=== PATIENT | female | born 1950 | race Caucasian/White ===

== ENCOUNTER 2019-07-19 09:10 | Day surgery (SDC) | payer MEDICARE ==
[~2019-07-19 09:10] MED LIST: Buffered Lidocaine 1% SYRIN* 1 ML/SYRINGE INTRADERM ONE; Lactated Ringers 1000 ML Bag* 1,000 ML IV SCH
[2019-07-19] MEDS ORDERED: ceFAZolin 2 GM in NS PREMIX(*) 2 GM/100 ML BAG IVPB ONE (09:42)
[2019-07-19] MEDS ORDERED: Buffered Lidocaine 1% SYRIN* 1 ML/SYRINGE INTRADERM ONE (09:42)
[2019-07-19] MEDS ORDERED: fentaNYL* 50 MCG/ML 2 ML VIAL (100 MCG VIAL) ONE (10:24)
[2019-07-19] MEDS ORDERED: Midazolam* 1 MG/ML 2 ML VIAL (2 MG) ONE (10:24)
[2019-07-19] MEDS ORDERED: Bupivacaine 0.25% SDV PF* 10 ML VIAL INJ ONE (10:55)
[2019-07-19] MEDS ORDERED: Lidocaine 1% w EPI 1:100,000* MDV 20 ML VIAL ONE (10:55)
[2019-07-19] MEDS ORDERED: Naloxone* 0.4 MG/ML 1 ML VIAL IV PRN (12:03)
[2019-07-19 13:20] VITALS: BP 109/59
== END 2019-07-19 14:08 | disposition home or self-care (01) ==
LOC: OR 09:10
PROVIDERS: ATTEND Plastic Surgery
DX: C44.722 Squamous cell carcinoma of skin of right lower limb, including hip (principal); J45.909 Unspecified asthma, uncomplicated; Z85.828 Personal history of other malignant neoplasm of skin
CPT/HCPCS: 88305; 88329; J0690; J2250; J3010; J3490

== ENCOUNTER 2019-07-26 12:48 | Inpatient (IN) | payer MEDICARE ==
[2019-07-26] MEDS ORDERED: traMADol TAB* 50 MG PO ONE (13:06)
--- NOTE | 2019-07-26 13:09 | ED ---
Lower Extremity - HPI Summary HPI Summary: The patient is a 68 y/o female arriving by ambulance to [facility] with a chief complaint of a mechanical fall where she landed on the right hip at 1130 this morning. She reports that she was outside walking on uneven ground while it was snowing, and she slipped and fell on the right side. She now has pain in the right hip and thigh, causing a decreased ROM in the hip. The pressure pain is currently rated 1/10 in severity while at rest, but it is aggravated by movement. She denies any numbness or tingling in the hip, fever, chills, erythema of eyes, sore throat, chest pain, shortness of breath, cough, abdominal pain, nausea, vomiting, dysuria, hematuria, edema, rash, or dizziness. She did not have any head injury or LOC from the fall, and there is no pain in the neck. She is not currently on anticoagulants. She notes recent skin biopsy on right thigh. PMHx: asthma. Nonsmoker, no EtOH, no substance use. Medications reviewed. Allergies noted. - History of Current Complaint Stated Complaint: FALL-RIGHT HIP PAIN PER EMS Time Seen by Provider: 07/26/19 12:55 Hx Obtained From: Patient Mechanism Of Injury: Fall From A Standing Position Onset of Pain: Immediate Onset/Duration: Still Present Severity Initially: Moderate Severity Currently: Mild Pain Intensity: 1 Pain Scale Used: 0-10 Numeric Timing: Lasting Hours Location: Is Discrete @ - right hip and thigh Character Of Pain: Dull Associated Signs And Symptoms: Positive: Other - decreased ROM secondary to pain ; Negative: numbness or tingling in the hip, chills, erythema of eyes, sore throat, chest pain, shortness of breath, cough, nausea, vomiting, dysuria, hematuria, edema, rash, head injury, LOC. Negative: Fever, Dizziness, Abdominal Pain - Allergies/Home Medications Allergies/Adverse Reactions: Allergies Allergy/AdvReac Type Severity Reaction Status Date / Time No Known Allergies Allergy Verified 07/12/19 14:37 PMH/Surg Hx/FS Hx/Imm Hx Endocrine/Hematology History: Denies: Hx Diabetes Cardiovascular History: Denies: Hx Hypertension Respiratory History: Reports: Hx Asthma - CHILDHOOD GI History: Reports: Other GI Disorders - SL.CONSTIPATION Musculoskeletal History: Reports: Hx Arthritis - HANDS AND KNEES Denies: Hx Osteoporosis Sensory History: Reports: Hx Contacts or Glasses - CONTACTS WILL WEAR GLASSES DOS Denies: Hx Hearing Aid Opthamlomology History: Reports: Hx Contacts or Glasses - CONTACTS WILL WEAR GLASSES DOS Neurological History: Reports: Other Neuro Impairments/Disorders - TREMOR RIGHT HAND, TENSION TREMOR - Cancer History Hx Chemotherapy: No Hx Radiation Therapy: No - Surgical History Surgical History: Yes Surgery Procedure, Year, and Place: JUL 2018 . [address]ZUPRUK Lara Anesthesia Reactions: No - Family History Known Family History: Negative: Diabetes - Social History Alcohol Use: None Hx Substance Use: No Substance Use Type: Reports: None Hx Tobacco Use: No Smoking Status (MU): Never Smoked Tobacco Have You Smoked in the Last Year: No Review of Systems Negative: Fever, Chills Negative: Erythema Negative: Sore Throat Negative: Chest Pain Negative: Shortness Of Breath, Cough Negative: Abdominal Pain, Vomiting, Nausea Negative: dysuria, hematuria Positive: Arthralgia - right hip, Myalgia - right thigh and hip, Decreased ROM - right hip secondary to pain. Negative: Edema Negative: Rash Neurological: Other - Negative: dizziness, head injury, LOC Negative: Paresthesia, Numbness All Other Systems Reviewed And Are Negative: Yes Physical Exam - Summary Physical Exam Summary: Constitutional: Well-developed, Well-nourished, Alert. (-) Distressed Skin: Warm, Dry HENT: Normocephalic; Atraumatic Eyes: Conjunctiva normal Neck: Musculoskeletal ROM normal neck. (-) JVD, (-) Stridor, (-) Tracheal deviation Cardio: Rhythm regular, rate normal, Heart sounds normal; Intact distal pulses; The pedal pulses are 2+ and symmetric. Radial pulses are 2+ and symmetric. (-) Murmur Pulmonary/Chest wall: Effort normal. (-) Respiratory distress, (-) Wheezes, (-) Rales Abd: Soft, (-) tenderness, (-) Distension, (-) Guarding, (-) Rebound Musculoskeletal: Decreased ROM of the right hip secondary to pain, Unable to lift the leg herself secondary to pain, Will not left me lift the leg secondary to pain, Mild tenderness on the right lateral hip, Femur tenderness overlying the skin biopsy incision, (-) Edema Lymph: (-) Cervical adenopathy Neuro: Alert, Oriented x3 Psych: Mood and affect Normal Triage Information Reviewed: Yes Vital Signs Reviewed: Yes Procedures - Sedation Patient Received Moderate/Deep Sedation with Procedure: No Diagnostics - Laboratory Result Diagrams: 07/26/19 14:27 07/26/19 14:27 Lab Statement: Any lab studies that have been ordered have been reviewed, and results considered in the medical decision making process. - Radiology Hip/Pelvis XR Radiology Interpretation Completed By: Radiologist Summary of Radiographic Findings: Impression: There is a comminuted subtrochanteric right hip fracture with lateral apex angulation and foreshortening. There is mild right hip osteoarthropathy. ED physician has reviewed this report. Femur XR Radiology Interpretation Completed By: Radiologist Summary of Radiographic Findings: Impression: Persistent comminuted and angulated subtrochanteric fracture of the right femur. ED physician has reviewed this report. CXR Radiology Interpretation Completed By: Radiologist Summary of Radiographic Findings: Impression: No active cardiopulmonary disease. ED physician has reviewed this report. - EKG 1420 Cardiac Rate: Tachycardia - 117 bpm EKG Rhythm: Sinus Tachycardia Summary of EKG Findings: An EKG at 1420 reveals sinus tachycardia at 117 bpm. Motion artifact. No STEMI. ED physician has reviewed and interpreted this EKG. 1629 Cardiac Rate: NL - 72 bpm EKG Rhythm: Sinus Rhythm Summary of EKG Findings: An EKG at 1629 reveals normal sinus rhythm at 72 bpm. No STEMI. ED physician has reviewed and interpreted this EKG. Re-Evaluation - Re-Evaluation First Eval Re-Evaluation Time: 15:00 Comment: Patient aware of need for admission, agrees with plan. Lower Extremity Course/Dx - Course Course Of Treatment: Patient is a 68 y/o female presenting by ambulance after a mechanical fall at 1130 today while walking outside in the snow, causing her to fall and have immediate onset pain in the right hip with decreased ROM but without any numbness or tingling in the leg. No head injury, LOC, or neck pain with fall. No anticoagulants. Physical exam reveals decreased ROM of the right hip secondary to pain, unable to lift the leg herself or by me secondary to pain , mild tenderness on the right lateral hip, and femur tenderness overlying the skin biopsy incision. Patient administered Tramadol for pain. Blood work reveals WBCs of 13.5, glucose of 144, and total protein of 6. UA is negative for infection. EKG reveals sinus tachycardia at 117 with motion artifact. CXR is negative. Hip/Pelvis and Femur XRs reveal comminuted subtrochanteric right hip fracture with lateral apex angulation and foreshortening. Repeat EKG shows normal sinus rhythm at [address] Barraza from orthopedics is aware of the patient and will consult for her. Dr. Francis from hospitalist services has accepted the patient for admission. Patient understands and agrees with this plan. - Diagnoses Provider Diagnoses: Subtrochanteric fracture of right femur - Physician Notifications Discussed Care Of Patient With: Jose Barraza - orthopedics Time Discussed With Above Provider: 15:10 Instructed by Provider To: Other - I discussed the patient's case with Dr. Barraza, who will consult for the patient. I spoke with Dr. Francis from the hospitalist services, who accepts the patient for admission at 1525. Discharge ED - Sign-Out/Discharge Documenting (check all that apply): Patient Departure - Patient accepted for admission by Dr. Francis. - Discharge Plan Condition: Stable Disposition: ADMITTED TO [facility] - Attestation Statements Document Initiated by Scribe: Yes Documenting Scribe: Delma Fung Provider For Whom Johnny is Documenting (Include Credential): Dr. Esteban Jacinto MD Scribe Attestation: Delma Chacko scribed for Dr. Esteban Jacinto MD on 07/26/19 at 1752. Status of Scribe Document: Ready
[2019-07-26 14:36] LABS: Hematocrit 36 % (35-47); Hemoglobin 12.4 g/dL (12.0-16.0); Mean Corpuscular HGB Conc 35 g/dL (31-36); Mean Corpuscular Hemoglobin 28 pg (27-31); Mean Corpuscular Volume 82 fL (80-97); Mean Platelet Volume 7.6 fL (7.4-10.4); Platelet Count 241 10^3/uL (150-450); Red Blood Count 4.38 10^6 /uL (3.70-4.87); Red Cell Distribution Width 14 % (10-15); White Blood Count 13.5 10^3/uL (3.5-10.8)
[2019-07-26 15:00] LABS: Albumin 3.9 g/dL (3.2-5.2); Albumin/Globulin Ratio 1.9 (1-3); BUN/Creatinine Ratio 22.7 (8-20); Calcium 8.9 mg/dL (8.6-10.3); EGFR African American 92.4 (>60); EGFR Non-African American 76.4 (>60); Globulin 2.1 g/dL (2-4); Potassium 3.7 mmol/L (3.5-5.0); Total Bilirubin 0.4 mg/dL (0.2-1.0)
[2019-07-26] MEDS ORDERED: Senna TAB 8.6 mg* TAB PO PRN (16:48)
[2019-07-26] MEDS ORDERED: Polyethylene Glycol 3350* 17 GM PACKET PO PRN (16:48)
[2019-07-26 16:50] LABS: Urine Appearance Clear; Urine Bilirubin Negative (Negative); Urine Blood Negative (Negative); Urine Color Yellow; Urine Glucose Negative (Negative); Urine Ketones Trace (Negative); Urine Nitrite Negative (Negative); Urine Protein Negative (Negative); Urine Specific Gravity 1.018 (1.010-1.030); Urine Urobilinogen Negative (Negative)
[2019-07-26 16:53] LABS: INR 1.03 (0.82-1.09)
--- NOTE | 2019-07-26 18:10 | HP ---
CC: Dr. Suyapa Nevarez * HISTORY AND PHYSICAL: DATE OF ADMISSION: 07/26/19 PRIMARY CARE PROVIDER: Dr. Suyapa Nevarez ATTENDING PHYSICIAN: Dr. Brooke Francis * (dictated by HUGH Scott). CHIEF COMPLAINT: 1. Mechanical fall. 2. Right hip pain. HISTORY OF PRESENT ILLNESS: Ms. Ontiveros is a 68-year-old female with no significant past medical history, who presented to the ER today with complaints of right hip pain status post mechanical fall. The patient states she was outside and she slipped on snow and fell landing on the right hip. She instantly felt pain and she states that she knew that the hip was broken at that time as she felt it "give way" when she landed. She denies head and neck injury or loss of consciousness. She was unable to use the hip. Upon arrival to the ER, a full workup was completed and a right femoral comminuted subtrochanteric fracture was seen on right femur and right hip/pelvis x-rays. The hospitalist team was asked to evaluate the patient for admission. PAST MEDICAL HISTORY: 1. Childhood asthma which the patient states she grew out of. 2. Squamous cell carcinoma, basal cell carcinoma. PAST SURGICAL HISTORY: L4-L5, surgical . HOME MEDICATIONS: 1. Ascorbic acid/ascorbate sodium 250 mg p.o. daily. 2. Arabic herbal tea 1 bag p.o. daily p.r.n. congestion. 3. Cholecalciferol 2000 units p.o. daily. ALLERGIES: No known drug allergies. FAMILY HISTORY: Father had an OK at the age of 50 which he survived. Brother had skin cancer. Mother had cancer of the lung/brain. No family history of diabetes mellitus or CVA. SOCIAL HISTORY: The patient denies current or former use of tobacco. She does not use alcohol or recreational drugs. 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 She is not . She has no children. She lives home alone. In the event that she is unable to make her own medical decision, she has appointed her brother Paul Linton or her oycgao-bi-vcy Nicole Michaels to be her surrogate decision makers. REVIEW OF SYSTEMS: A 14-point review of systems has been performed and all the pertinent positives and negatives are in the HPI, all other systems are negative. PHYSICAL EXAMINATION GENERAL: Ms. Ontiveros is a well-developed, well-nourished, healthy, older white woman who appears somewhat younger than her stated age. She appears to be in no acute distress. She is pleasant and cooperative, although somewhat anxious about her current state. HEENT: PERRL. EOMI. Visual olmstead grossly intact. Sclerae nonicteric without injection. Hearing is grossly intact. Oral mucous membranes are moist. There are no lesions. The pharynx is clear. The tongue is at midline and the palate elevates symmetrically. PULMONARY: Symmetrical chest expansion without use of accessory muscles. Clear to auscultation bilaterally anteriorly without rhonchi, wheeze, or rales. CARDIOVASCULAR: Regular rate and rhythm with S1, S2 present without murmurs, rubs, clicks, or gallops. There is no JVD or peripheral edema. ABDOMEN: Flat bowel sounds in all quadrants. Soft, nontender to palpation. MUSCULOSKELETAL: Bilateral upper extremities, left lower extremity with full range of motion without pain or deformities. The right lower extremity is externally rotated. Pulses are intact. Capillary refill less than 2. Sensation intact. The patient is able to wiggle distal digits. NEURO: The patient is awake. She is alert and oriented x3 with cranial nerves II through XII grossly intact. DIAGNOSTIC STUDIES/LAB DATA: 1. CBC: WBC 13.5, HGB 12.4, hematocrit 36. 2. CMP: Sodium 138, potassium 3.7, chloride 103, carbon dioxide 24, BUN 17, creatinine 0.75, glucose 144. 3. Chest x-ray, impression: No active cardiopulmonary disease. 4. Right hip and pelvis, impression: There is a comminuted subtrochanteric right hip fracture with lateral apex angulation and foreshortening. There is mild right hip osteoarthropathy. 5. Right femur, impression: Persistent comminuted and angulated subtrochanteric fracture of the right femur. 6. EKG: Rate 72, normal sinus rhythm, ELEONORA [address] depression or elevation. ASSESSMENT AND PLAN: Ms. Ontiveros is a 68-year-old female with no significant past medical history, who presented to the ER today status post mechanical fall and was found to have a right comminuted subtrochanteric fracture of the right femur. She will be admitted for: 1. Right femur fracture. The patient sustained mechanical fall landing on right hip and sustaining a comminuted subtrochanteric right femur fracture. Currently, the patient's pain is moderately well controlled. She will be continued on pain management as well as bowel regimen. Ortho has been consulted and has seen the patient and plans for gamma nail surgery. She will be n.p.o. in preparation for possible surgery tonight. She is nonweightbearing right lower extremity, bed rest until surgery has been performed. According to the patient's revised cardiac risk index, she scores 0 points and there is class I risk with 3.9% 30-day risk of , OK, or cardiac arrest. She denies any history of chest pain or shortness of breath. 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 She has no troubles with exercise capacity and is able to easily walk up flights of stairs. Electrocardiogram from today shows a normal sinus rhythm at the rate of [address] depression or elevation. Chest x-ray is negative for active cardiopulmonary disease. The patient is medically optimized for surgical intervention. 2. DVT prophylaxis: According to the DVT risk assessment, the patient scores 2 placing her at moderate risk. SCDs will be ordered. We will not start chemoprophylaxis at this time due to plans for surgical intervention. 3. Code status: Full code. TIME SPENT: Approximately 50 minutes was spent on this admission, greater than half that time was spent [id number] with the patient obtaining history, performing physical, and reviewing the plan of care. The case has been discussed with my attending Dr. Francis, who is in agreement with the plan of care. HUGH MALIK [id number]/CPS #: [id number] VIOLETTA
--- NOTE | 2019-07-26 18:35 | CONS ---
CONSULTATION REPORT: DATE OF CONSULT: 07/26/19 CHIEF COMPLAINT: Right femur fracture. HISTORY: The patient is a 68-year-old female with no past medical history, presents to [facility] on 07/26/19 after slipping on wet uneven ground at 11:30 this morning, landing directly on her right hip and suffering a subtroc fracture. She currently has no pain at rest. Pain is aggravated by movement. Pain is severe, sharp, and nonradiating. Denies any numbness, tingling of right lower extremity. She denies any other injury. She did not hit her head. She did not lose consciousness when she fell. She has no history of heart attack, stroke, blood clot, HIV, hepatitis or blood transfusion. PAST MEDICAL HISTORY: None. MEDICATIONS: No home medications PAST SURGICAL HISTORY: History of L4-5 surgery. No adverse reactions from anesthesia. ALLERGIES: She has no known drug allergies. 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 She does not smoke, drink alcohol or use any drugs. REVIEW OF SYSTEMS: General: No fever or chills. HEENT: Did not hit her head , did not lose consciousness. No change in vision. Cardiac: No chest pain. No history of heart attack. Respiratory: No shortness of breath. Abdomen: No abdominal pain, nausea, vomiting, diarrhea. : No dysuria. Musculoskeletal: Positive for right hip pain with movement, though she is quite comfortable at this time. She has no other complaints of musculoskeletal pain. Neuro: Denies any decreased sensation or tingling of extremities. Hematology : No history of blood clot. PHYSICAL EXAM: Blood pressure 112/63, oxygen saturation 100% on room air, respiratory rate 16, pulse rate 72, temperature is 97.6. General: The patient is well appearing, in no acute distress, lying comfortably in the emergency room. HEENT: Normocephalic, atraumatic. Extraocular movements are intact. Cardiac: S1, S2, regular rate and rhythm without any murmur. Respiratory: Clear to auscultation bilaterally. Abdomen: Bowel sounds normoactive, soft, nontender. No guarding. No rigidity. Musculoskeletal: Bilateral upper extremities; skin envelope intact, nontender to palpation. Able to flex and extend all joints without any pain. Left lower extremity; skin envelope intact. Able to flex and extend all joints without pain. No tenderness to palpation. Negative log roll. Right lower extremity; skin envelope is intact. Sensation intact to light touch distally. The patient is tender to palpation over the greater trochanter. There is no obvious rotation or shortening. She has no tenderness to palpation of the distal femur, knee, lower leg, foot, or digits. Vascular: DP 2+, capillary refill less than 2 seconds distally. ASSESSMENT: Right subtrochanteric fracture. PLAN: The patient will be nonweightbearing. She will be on bedrest. She has had preop labs including CBC and BMP so far and INR and type and screen have been ordered. She needs a repeat EKG and medical optimization. She will require a long gamma nail for fixation. This will happen at soonest available date. Dr. Barraza has been made aware, this should happen either tonight or tomorrow. HUGH ROWELL [id number]/[facility] #: [id number] [facility] HEALTHNico
[2019-07-26] MEDS ORDERED: fentaNYL* 50 MCG/ML 2 ML VIAL (100 MCG VIAL) ONE (19:40)
[2019-07-26] MEDS ORDERED: KETAMINE HCL* 50 MG/ML 10 ML VIAL ONE (19:40)
[2019-07-26] MEDS ORDERED: Midazolam* 1 MG/ML 2 ML VIAL (2 MG) ONE (19:40)
[2019-07-26] MEDS ORDERED: ceFAZolin 2 GM PREMIX in ORs 2 GM/50 ML BAG ONE (19:44)
--- NOTE | 2019-07-26 19:47 | CONSULT ---
Consult Consult: Agree with consult note by Ana Rao. Discussed with patient (and her [id number] by phone) fracture along with surgical and medical risks and potential complications of surgery. To the OR for ORIF subtrochanteric hip fracture with long intramedullary nail. Optimized by medicine.
[2019-07-26] MEDS ORDERED: Naloxone* 0.4 MG/ML 1 ML VIAL IV PRN (19:51)
[2019-07-26] MEDS ORDERED: oxyCODONE/Acetamin 5/325 MG* TAB PO PRN (19:51)
[2019-07-26] MEDS ORDERED: Ketorolac INJ* 30 MG/ML 1 ML VIAL IV PRN (19:51)
[2019-07-26] MEDS ORDERED: HYDROcodone/ACETAMIN 5-325 MG* 1 TAB PO PRN (19:51)
[2019-07-26] MEDS ORDERED: DiMENhydriNATE IV* 50 MG/ML VIAL IV PUSH PRN (19:51)
[2019-07-26] MEDS ORDERED: Famotidine IV* 10 MG/ML 2 ML (20 mg) ONE (19:59)
[2019-07-26] MEDS ORDERED: Famotidine IV* 10 MG/ML 2 ML (20 mg) IV SLOW PU ONE (20:10)
[2019-07-26] MEDS ORDERED: Heparin VIAL(*) 5000 UNITS/ML VIAL (FIVE THOUSAND) SUBCUT ONE (22:00)
[2019-07-26] MEDS: Acetaminophen TAB* 325 MG PO PRN (22:52)
[2019-07-27] MEDS ORDERED: Ibuprofen TAB* 400 MG PO ONE (00:06)
[2019-07-27] MEDS: oxyCODONE/Acetamin 5/325 MG* TAB PO PRN (03:41)
--- NOTE | 2019-07-27 07:58 | PN ---
Subjective Date of Service: 07/27/19 Interval History: Pt is feeling ok currently. No pain in the R leg unless she is tense or moving. No SOB. No issues with constipation leading up to her hospitalization. Objective Active Medications: Acetaminophen (Tylenol Tab*) 650 mg PO Q4H PRN PRN Reason: mild to moderate pain Last Admin: 07/26/19 22:52 Dose: 650 mg Hydrocodone Bitart/Acetaminophen ([place] 5-325 Tab*) 1 tab PO ONCE PRN PRN Reason: PAIN - MODERATE Cholecalciferol (Vitamin D Tab*) 2,000 units PO QAM JANINA Dimenhydrinate (Dramamine Iv*) 12.5 mg IV PUSH ONCE PRN PRN Reason: NAUSEA/VOMITING Docusate Sodium (Colace Cap*) 100 mg PO BID PRN PRN Reason: CONSTIPATION Fentanyl Citrate (Fentanyl*) 25 mcg IV Q5M PRN PRN Reason: PAIN - MODERATE Lactated Ringer's (Lactated Ringers 1000 Ml Bag*) 1,000 mls @ 100 mls/hr IV .PER RATE JANINA Ketorolac Tromethamine (Toradol Inj*) 15 mg IV ONCE PRN PRN Reason: PAIN - MILD Magnesium Hydroxide (Milk Of Magnesia Liq*) 30 ml PO BID PRN PRN Reason: CONSTIPATION Morphine Sulfate (Morphine Inj (Syringe))*) 2 mg IV Q4H PRN PRN Reason: severe pain Naloxone HCl (Narcan*) 0.08 mg IV Q2M PRN PRN Reason: severe induced resp depression Oxycodone/Acetaminophen (Percocet 5/325 Tab*) 1 tab PO Q4H PRN PRN Reason: moderate to severe pain Last Admin: 07/27/19 03:41 Dose: 1 tab Oxycodone/Acetaminophen (Percocet 5/325 Tab*) 1 tab PO ONCE PRN PRN Reason: PAIN - MODERATE Polyethylene Glycol/Electrolytes (Miralax*) 17 gm PO DAILY PRN PRN Reason: CONSTIPATION Senna (Senokot 8.6 Mg Tab*) 1 tab PO BEDTIME PRN PRN Reason: CONSTIPATION Vital Signs - 8 hr 07/27/19 07/27/19 07/27/19 00:26 03:41 04:20 Temperature 98.5 F 99.0 F Pulse Rate 67 66 Respiratory 16 18 16 Rate Blood Pressure 105/56 102/53 (mmHg) O2 Sat by Pulse 95 98 Oximetry 07/27/19 05:51 Temperature Pulse Rate Respiratory 18 Rate Blood Pressure (mmHg) O2 Sat by Pulse Oximetry Oxygen Devices in Use Now: None Appearance: Elderly female lying flat in bed, NAD Eyes: No Scleral Icterus Ears/Nose/Mouth/Throat: Mucous Membranes Moist Respiratory: Symmetrical Chest Expansion and Respiratory Effort, Clear to Auscultation - anteriorly Cardiovascular: NL Sounds; No Murmurs; No JVD, RRR, No Edema Abdominal: NL Sounds; No Tenderness; No Distention Extremities: No Clubbing, Cyanosis Skin: No Nodules or Sclerosis Neurological: Alert and Oriented x 3 Result Diagrams: 07/26/19 14:27 07/26/19 14:27 Assess/Plan/Problems-Billing Ms Ontiveros is a 68yo F who has no significant PMHx who presented to [facility] after a mechanical fall where she sustained a R subtrochanteric femur fracture. - Patient Problems (1) Fracture, subtrochanteric, right femur, closed Current Visit: Yes Status: Acute Code(s): S72.21XA - DISPLACED SUBTROCHANTERIC FRACTURE OF RIGHT FEMUR, INIT SNOMED Code(s): 718531340 Comment: Plan is for the patient to go to the OR later today. She went last night but equipment was contaminated so surgery was cancelled. Her pain is fairly well controlled currently. She does worry about how to control her pain while NPO as she was taking ibuprofen and percocet yesterday which worked well. At this time the patient is medically optimized for surgery. In reviewing her EKG, she does have a prolonged QTc. Will repeat EKG this AM, should avoid further QT prolonging medications. She also has a mild leukocytosis but this is likely secondary to stress. Repeat CBC tomorrow-no signs of infection other than leukocytosis at this time. (2) DVT prophylaxis Current Visit: Yes Status: Acute Code(s): Z29.9 - ENCOUNTER FOR PROPHYLACTIC MEASURES, UNSPECIFIED SNOMED Code(s): 001075125 Comment: SCDs only in anticipation of OR later today (3) Full code status Current Visit: Yes Status: Acute Code(s): Z78.9 - OTHER SPECIFIED HEALTH STATUS SNOMED Code(s): 708980835
[2019-07-27] MEDS: Cholecalciferol TAB* 1000 UNITS PO SCH (09:57)
[2019-07-27] MEDS: Lactated Ringers 1000 ML Bag* 1,000 ML IV SCH (11:33)
--- NOTE | 2019-07-27 17:11 | PN ---
Progress Note - Progress Note Date of Service: 07/27/19 SOAP: Subjective: Pain is controlled. Objective: RLE: - NVID - Bandage in place anterolateral mid/distal thigh Selected Entries 07/27/19 11:55 Temperature 98.4 F Pulse Rate 64 Respiratory 16 Rate Blood Pressure 99/43 (mmHg) O2 Sat by Pulse 98 Oximetry Laboratory Tests 07/26/19 16:14 Urine Nitrate Negative Ur Leukocyte Esterase Negative Assessment: HD 2 R hip subtroch fracture Plan: - To the OR for ORIF with long Gamma IMN
[2019-07-27] MEDS ORDERED: Midazolam* 1 MG/ML 5 ML VIAL (5 MG) ONE (17:17)
[2019-07-27] MEDS ORDERED: KETAMINE HCL* 50 MG/ML 10 ML VIAL ONE (17:17)
[2019-07-27] MEDS ORDERED: fentaNYL* 50 MCG/ML 2 ML VIAL (100 MCG VIAL) ONE ×2 (17:17→21:16)
[2019-07-27] MEDS ORDERED: Bupivacaine 0.25% EPI 200,000* 30 ML SDV ONE (17:36)
[2019-07-27] MEDS ORDERED: ceFAZolin 2 GM PREMIX in ORs 2 GM/50 ML BAG ONE (17:55)
[2019-07-27] MEDS ORDERED: VASOPRESSIN 20 UNITS/ML 1 ML VIAL ONE (19:57)
[2019-07-27 20:04] LABS: Hematocrit 22 % (35-47); Hemoglobin 7.8 g/dL (12.0-16.0)
[2019-07-27] MEDS ORDERED: Propofol* 500 MG/50 ML BTL ONE (20:12)
[2019-07-27] MEDS: fentaNYL* 50 MCG/ML 2 ML VIAL (100 MCG VIAL) IV PRN ×4 (21:17→22:16)
[2019-07-27] MEDS ORDERED: Ketorolac INJ* 30 MG/ML 1 ML VIAL ONE (22:18)
[2019-07-28] MEDS: Morphine INJ* 2 MG/ML 1 ML SYRINGE (TWO MG - NEW SYRINGE VERSION) IV PRN ×2 (00:33→04:14)
[2019-07-28] MEDS: Lactated Ringers 1000 ML Bag* 1,000 ML IV SCH (01:08)
[2019-07-28] MEDS: oxyCODONE/Acetamin 5/325 MG* TAB PO PRN ×5 (01:22→21:44)
[2019-07-28] MEDS: ceFAZolin 1 GM* Q8H (AddVan) IVPB SCH ×6 (04:57→21:44)
[2019-07-28 06:27] LABS: BUN/Creatinine Ratio 22.4 (8-20); Calcium 7.4 mg/dL (8.6-10.3); EGFR African American 105.3 (>60); Potassium 4.1 mmol/L (3.5-5.0)
[2019-07-28 06:51] LABS: ABS Lymphocytes 0.6 10^3/ul (1.0-4.8); ABS Monocytes 0.5 10^3/ul (0-0.8); ABS Neutrophils 5.2 10^3/ul (1.5-7.7); Eosinophil % 0.1 %; Hematocrit 25 % (35-47); Hemoglobin 9.3 g/dL (12.0-16.0); Lymphocyte % 9.1 %; Mean Corpuscular HGB Conc 37 g/dL (31-36); Mean Corpuscular Hemoglobin 30 pg (27-31); Mean Corpuscular Volume 82 fL (80-97); Mean Platelet Volume 7.7 fL (7.4-10.4); Platelet Count 96 10^3/uL (150-450); Red Blood Count 3.09 10^6 /uL (3.70-4.87); Red Cell Distribution Width 14 % (10-15); White Blood Count 6.4 10^3/uL (3.5-10.8)
[2019-07-28] MEDS: Enoxaparin(*) 30 MG/0.3 ML SYR SUBCUT SCH (09:01)
[2019-07-28] MEDS: Cholecalciferol TAB* 1000 UNITS PO SCH (09:01)
[2019-07-28] MEDS: Magnesium Hydroxide LIQ* 30 ML UDC PO PRN (09:05)
[2019-07-28] MEDS: Docusate CAP* 100 MG PO PRN (09:05)
[2019-07-28 10:28] LABS: Mean Platelet Volume 7.8 fL (7.4-10.4); Platelet Count 121 10^3/uL (150-450)
--- NOTE | 2019-07-28 11:31 | PN ---
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 Her pain is well controlled. Has not had BM in 3 days and has taken colace and milk of mag. Denies abd pain, chest pain, difficulty breathing, fever/chills. Objective Active Medications: Acetaminophen (Tylenol Tab*) 650 mg PO Q4H PRN PRN Reason: mild to moderate pain Last Admin: 07/26/19 22:52 Dose: 650 mg Cholecalciferol (Vitamin D Tab*) 2,000 units PO QAM [facility] Last Admin: 07/28/19 09:01 Dose: 2,000 units Docusate Sodium (Colace Cap*) 100 mg PO BID PRN PRN Reason: CONSTIPATION Last Admin: 07/28/19 09:05 Dose: 100 mg Enoxaparin Sodium (Lovenox(*)) 30 mg SUBCUT Q24H [facility] Last Admin: 07/28/19 09:01 Dose: 30 mg Cefazolin Sodium 1 gm/ Sodium (Chloride) 50 mls @ 200 mls/hr IVPB Q8H [facility] Stop: 07/29/19 21:14 Last Admin: 07/28/19 04:57 Dose: 200 mls/hr Magnesium Hydroxide (Milk Of Magnesia Liq*) 30 ml PO BID PRN PRN Reason: CONSTIPATION Last Admin: 07/28/19 09:05 Dose: 30 ml Morphine Sulfate (Morphine Inj (Syringe))*) 2 mg IV Q4H PRN PRN Reason: severe pain Last Admin: 07/28/19 04:14 Dose: 2 mg Oxycodone/Acetaminophen (Percocet 5/325 Tab*) 1 tab PO Q4H PRN PRN Reason: moderate to severe pain Last Admin: 07/28/19 07:52 Dose: 1 tab Polyethylene Glycol/Electrolytes (Miralax*) 17 gm PO DAILY PRN PRN Reason: CONSTIPATION Senna (Senokot 8.6 Mg Tab*) 1 tab PO BEDTIME PRN PRN Reason: CONSTIPATION Vital Signs - 8 hr 07/28/19 07/28/19 07/28/19 04:14 04:26 05:02 Temperature Pulse Rate Respiratory 16 16 Rate Blood Pressure (mmHg) O2 Sat by Pulse 99 Oximetry 07/28/19 07/28/19 07/28/19 05:48 07:36 07:52 Temperature 98.5 F Pulse Rate 80 Respiratory 18 14 18 Rate Blood Pressure 109/48 (mmHg) O2 Sat by Pulse 97 Oximetry 07/28/19 07/28/19 08:00 09:45 Temperature Pulse Rate Respiratory 16 18 Rate Blood Pressure (mmHg) O2 Sat by Pulse 97 Oximetry Oxygen Devices in Use Now: None Appearance: Thin, eldelry white female, reclined in chair, appearing comfortable in NAD Eyes: No Scleral Icterus, - - PERRL Ears/Nose/Mouth/Throat: Mucous Membranes Moist Neck: Trachea Midline Respiratory: Symmetrical Chest Expansion and Respiratory Effort, Clear to Auscultation Cardiovascular: NL Sounds; No Murmurs; No JVD, RRR Abdominal: - - abd soft, nontender, nondistended Extremities: No Edema, No Clubbing, Cyanosis Skin: No Rash or Ulcers Neurological: Alert and Oriented x 3, NL Muscle Strength and Tone Result Diagrams: 07/28/19 10:22 07/28/19 05:56 Assess/Plan/Problems-Billing Ms Ontiveros is a 68yo F who has no significant PMHx who presented to [facility] after a mechanical fall where she sustained a R subtrochanteric femur fracture. - Patient Problems (1) Fracture, subtrochanteric, right femur, closed Current Visit: Yes Status: Acute Code(s): S72.21XA - DISPLACED SUBTROCHANTERIC FRACTURE OF RIGHT FEMUR, INIT SNOMED Code(s): 360926027 Comment: -right hip fracture s/p mechanical fall -s/p right hip ORIF with Dr. Barraza 07/27/19 -continue pain control and bowel regimen -PT (2) Anemia Current Visit: Yes Status: Acute Code(s): D64.9 - ANEMIA, UNSPECIFIED SNOMED Code(s): 003383603 Comment: -Hgb 12.4 at admission, today 9.3 -related to blood loss from surgery -continue monitoring H&H (3) Thrombocytopenia Current Visit: Yes Status: Acute Code(s): D69.6 - THROMBOCYTOPENIA, UNSPECIFIED SNOMED Code(s): 798530740 Comment: -platelets 121 on repeat, most likely 2/2 blood loss from surgery (4) DVT prophylaxis Current Visit: Yes Status: Acute Code(s): Z29.9 - ENCOUNTER FOR PROPHYLACTIC MEASURES, UNSPECIFIED SNOMED Code(s): 049652412 Comment: -lovenox per ortho (5) Full code status Current Visit: Yes Status: Acute Code(s): Z78.9 - OTHER SPECIFIED HEALTH STATUS SNOMED Code(s): 498548697 Status and Disposition: inpatient, pending rehab placement
--- NOTE | 2019-07-28 12:28 | PN ---
Progress Note - Progress Note Date of Service: 07/28/19 SOAP: Subjective: Pt seen and examined sitting in chair. No complaint of pain. States feels pretty good. Denies CP, SOB, F/C. Vital Signs: Temp Pulse Resp BP Pulse Ox 98.4 F 79 14 112/56 98 07/28/19 11:34 07/28/19 11:34 07/28/19 11:34 07/28/19 11:40 07/28/19 11:34 Laboratory Last Values WBC 6.4 10^3/uL (3.5-10.8) 07/28/19 05:56 RBC 3.09 10^6 /uL (3.70-4.87) L 07/28/19 05:56 Hgb 9.3 g/dL (12.0-16.0) L 07/28/19 05:56 Hct 25 % (35-47) L 07/28/19 05:56 MCV 82 fL (80-97) 07/28/19 05:56 MCH 30 pg (27-31) 07/28/19 05:56 MCHC 37 g/dL (31-36) H 07/28/19 05:56 RDW 14 % (10-15) 07/28/19 05:56 Plt Count 121 10^3/uL (150-450) L 07/28/19 10:22 MPV 7.8 fL (7.4-10.4) 07/28/19 10:22 Neut % (Auto) 81.9 % 07/28/19 05:56 Lymph % (Auto) 9.1 % 07/28/19 05:56 [place] % (Auto) 8.6 % 07/28/19 05:56 Eos % (Auto) 0.1 % 07/28/19 05:56 Baso % (Auto) 0.3 % 07/28/19 05:56 Absolute Neuts (auto) 5.2 10^3/ul (1.5-7.7) 07/28/19 05:56 Absolute Lymphs (auto) 0.6 10^3/ul (1.0-4.8) L 07/28/19 05:56 Absolute Monos (auto) 0.5 10^3/ul (0-0.8) 07/28/19 05:56 Absolute Eos (auto) 0.0 10^3/ul (0-0.6) 07/28/19 05:56 Absolute Basos (auto) 0.0 10^3/ul (0-0.2) 07/28/19 05:56 Absolute Nucleated RBC 0.0 10^3/ul 07/28/19 05:56 Nucleated RBC % 0.0 07/28/19 05:56 INR (Anticoag Therapy) 1.03 (0.82-1.09) 07/26/19 14:18 Sodium 137 mmol/L (135-145) 07/28/19 05:56 Potassium 4.1 mmol/L (3.5-5.0) 07/28/19 05:56 Chloride 107 mmol/L (101-111) 07/28/19 05:56 Carbon Dioxide 26 mmol/L (22-32) 07/28/19 05:56 Anion Gap 4 mmol/L (2-11) 07/28/19 05:56 BUN 15 mg/dL (6-24) 07/28/19 05:56 Creatinine 0.67 mg/dL (0.51-0.95) 07/28/19 05:56 Est GFR ( Amer) 105.3 (>60) 07/28/19 05:56 Est GFR (Non-Af Amer) 87.0 (>60) 07/28/19 05:56 BUN/Creatinine Ratio 22.4 (8-20) H 07/28/19 05:56 Glucose 112 mg/dL (70-100) H 07/28/19 05:56 Calcium 7.4 mg/dL (8.6-10.3) L 07/28/19 05:56 Total Bilirubin 0.40 mg/dL (0.2-1.0) 07/26/19 14:27 AST 17 U/L (13-39) 07/26/19 14:27 ALT 12 U/L (7-52) 07/26/19 14:27 Alkaline Phosphatase 58 U/L (34-104) 07/26/19 14:27 Total Protein 6.0 g/dL (6.4-8.9) L 07/26/19 14:27 Albumin 3.9 g/dL (3.2-5.2) 07/26/19 14:27 Globulin 2.1 g/dL (2-4) 07/26/19 14:27 Albumin/Globulin Ratio 1.9 (1-3) 07/26/19 14:27 Urine Color Yellow 07/26/19 16:14 Urine Appearance Clear 07/26/19 16:14 Urine pH 7.0 (5-9) 07/26/19 16:14 Ur Specific [place] 1.018 (1.010-1.030) 07/26/19 16:14 Urine Protein Negative (Negative) 07/26/19 16:14 Urine Ketones Trace (Negative) A 07/26/19 16:14 Urine Blood Negative (Negative) 07/26/19 16:14 Urine Nitrate Negative (Negative) 07/26/19 16:14 Urine Bilirubin Negative (Negative) 07/26/19 16:14 Urine Urobilinogen Negative (Negative) 07/26/19 16:14 Ur Leukocyte Esterase Negative (Negative) 07/26/19 16:14 Urine Glucose Negative (Negative) 07/26/19 16:14 Urine Ascorbic Acid * (Negative) A 07/26/19 16:14 Blood Type A Positive 07/26/19 14:27 Antibody Screen Negative 07/26/19 14:27 Crossmatch See Detail 07/26/19 14:27 Objective: A&O x3, NAD Dressing C/D/I, Calves soft and nontender, No edema, NVI distally Assessment: 68 yo female s/p right long gamma nail POD #1 Plan: OOB, PT/OT TTWB Pain control DVT prophylaxis - Lovenox [place] D/C planning
[2019-07-28] MEDS: Acetaminophen TAB* 325 MG PO PRN (15:52)
[2019-07-29] MEDS: oxyCODONE/Acetamin 5/325 MG* TAB PO PRN ×4 (02:12→19:46)
--- NOTE | 2019-07-29 02:40 | OP ---
OPERATIVE NOTE: DATE OF OPERATION: 07/27/19 DATE OF : 46 SURGEON: Jose Barraza MD LOOM OPERATOR: HUGH Kim ANESTHESIOLOGIST: Santos Torres MD at the start ANESTHESIA: Spinal anesthesia. PRE-OP DIAGNOSIS: Right hip subtrochanteric fracture, displaced, comminuted. POST-OP DIAGNOSIS: Right hip subtrochanteric fracture, displaced, comminuted. OPERATIVE PROCEDURE: 1. Open reduction and internal fixation, right hip, subtrochanteric fracture using long intramedullary nail. 2. Modifier 22 for complex procedure as this procedure required large incision with direct manipulation and clamp reduction at the fracture site, intratrochanteric and subtrochanteric to perform the intramedullary procedure. Cerclage cable was trialed but decided against. ANTIBIOTICS: Ancef 2 g IV. IV FLUIDS: See Anesthesia note. SKIN TO SKIN TIME: 119 minutes. RADIATION EXPOSURE: Large C-arm utilized. SPECIMEN: Some bone reamings were sent to Pathology given the patient's recent history of removal of squamous cell carcinoma from the skin, distal lateral thigh. IMPLANTS: Philip long right gamma nail size 11 mm x360 mm x 125 degree. The lag screw was 10.5 mm x 105 mm. Two distal locking screws with a width of 5 mm and length of 47.5 and 52.5 mm. ESTIMATED BLOOD LOSS: 100 cc. COMPLICATIONS: None. 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 The patient was brought to [facility] emergency room. The patient was diagnosed with a right hip fracture. The patient was then made n.p.o. She was optimized and cleared by the hospitalist service which she was admitted. Initially I had intended to take her to the operating room in the evening of 07/26/19, however, there was an equipment issue in the operating room and so we delayed her surgery until late afternoon or early evening on 07/27/19. I discussed with the patient along with a family member of her's, [id number] in her presence, the planned surgery, the possible need to open the thigh at the fracture site to obtain reduction given the significant displacement visible on preoperative x-rays. I spoke about potential surgical and medical complications of surgery including bleeding, infection, nerve or blood vessel injury, non-union, malunion, hardware failure, hardware rip out of bone, need for revision surgery, blood clot, pneumonia, atelectasis, urinary tract infection, decubitus ulcer. I discussed a reduction would either be done closed manipulation following her medullary nail with an open reduction. I consented the patient for intramedullary nail placement and possible cerclage wires. DESCRIPTION OF PROCEDURE: In preoperative holding, the patient signed a written consent. Operative extremity was marked in the preoperative holding. The patient was taken back to the operating room. Dr. Torres performed a spinal anesthetic block. The patient was placed on the fracture table. It was positioned appropriately. Prior to prep and drape, we performed a mini time-out. I brought the C-arm in. I obtained some x-rays. I added traction, variable amounts as well as variable amounts of internal and external rotation. AP views were good and the traction removed a significant varus at the fracture site. However, review of lateral x- rays views revealed that there was still significant flexion of the proximal fragment such should I thought open reduction was likely to be required. The patient was prepped and draped. A formal surgical time-out was performed. I made a stab skin incision 8 cm proximal to the proximal tip of the greater trochanter in line with the femoral shaft. I placed a pin down into the greater trochanter and advanced it to the transverse component of the fracture. X-rays showed it to be in a good position. I next extended my skin incision proximal and distal. Dissected down to the hip abductor fascia and sized that in line with the [place] pin. I could palpate the greater trochanter. I adjusted the pin position to make it better. I then used an entry reamer to ream the proximal aspect of the greater trochanter. I next passed the ball tip guidewire. I put a curve in its hook. I was actually able to easily pass it across the fracture site, but lateral view revealed a significant displacement still with flexion of the proximal fragment. However, with this malreduction the ball tip guidewire could not be passed all the way to the distal end of the femur without it being very eccentrically located. I tried a variety of closed reduction maneuvers and I tried to use a large surgical spatula placed through the proximal incision. This did not allow significant improvement of reduction. I decided to open at the fracture site. I extended my incision distally, dissected down to hip abductor fascia and iliotibial band. I split that in line with the skin incision. Split the vastus lateralis in line with the skin incisions. I exposed the fracture site. I used 2 Verbrugge clamps to greatly improve my reduction. This essentially brought the more proximal and distal fragments together nicely. We have removed flexion from the deformity at the fracture site. However, it was obvious to me feeling the proximal aspect of bone that there was some longitudinal fracture lines and certainly incongruity present although the overall the shaft, intramedullary aspect of the bone was lined up nicely. We tried to improve the reduction but this was the best that could be obtained with clamps. With the bone so reduced, I repassed the guidewire and started my reaming. I reamed starting at 9 mm, flexible reamer. I reamed up to 13 mm. This was very smooth. I should state that prior to reaming, I measured the length of the guidewire and picked the appropriate length nail. I next placed my nail. I removed one of my Verbrugge clamps, but kept the other in place during the passage. I next used the jig to drill and then place a lag screw into the femoral head and neck. Excellent position. I next used the distal guide jig to place 2 locking screws through the distal element of the nail. I kept the wounds well irrigated. I next assessed the fracture site in a variety of x-ray views and by palpation. There was clearly some incongruity. I considered circumferential compression via cerclage without a cable and I placed it first, proximal to the transverse fracture line and then right at the transverse fracture line with the proximal fragment medial and distal fragment lateral. In both of those positions, I placed the cerclage and tightened it, but both by touch and by x-ray radiograph that did not significantly prove the reduction. Therefore, knowing that there are downsides to cable use including impaired circulation, blood flow, I decided not to place a cerclage cable. Irrigation, closure of the vastus lateralis muscle and fascia with a running stitch using Ethibond 1 suture. Then closure of the iliotibial band and the hip abductor fascia with a series of running stitches using Ethibond 1 suture. This was watertight. Closure of subcutaneous skin layer in both incisions with buried simple stitches using Vicryl 2-0 suture. Skin closure with luz maria. Final x-rays have been obtained. Xeroform, 4x4s, ABDs, generous foam tape. 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 The patient was lightened off sedation and taken to the PACU. DISPOSITION: The patient was readmitted to the hospitalist service. She will receive Ancef antibiotics for 48 hours postoperative. She will be toe-touch weightbearing. Given the instability of this subtrochanteric fracture preoperatively, I will likely make her toe-touch weightbearing for a full 6 weeks and then make her weightbearing as tolerated. She will get physical therapy postoperatively, treat with pain control postoperatively. Lovenox 30 mg subcu x4 weeks postoperatively. She will see me in the office 2 weeks or 14 days postoperatively approximately. She will keep the wounds covered for at least 7 days but can do a dressing change with dressing change at postoperative day#3. [id number]/[facility] #: [id number] VIOLETTA
[2019-07-29] MEDS: ceFAZolin 1 GM* Q8H (AddVan) IVPB SCH ×6 (04:54→21:18)
[2019-07-29 06:15] LABS: ABS Eosinophils 0.1 10^3/ul (0-0.6); ABS Lymphocytes 0.6 10^3/ul (1.0-4.8); ABS Monocytes 0.5 10^3/ul (0-0.8); ABS Neutrophils 4.6 10^3/ul (1.5-7.7); Hematocrit 21 % (35-47); Hemoglobin 7.5 g/dL (12.0-16.0); Lymphocyte % 10.6 %; Mean Corpuscular HGB Conc 36 g/dL (31-36); Mean Corpuscular Hemoglobin 29 pg (27-31); Mean Corpuscular Volume 82 fL (80-97); Mean Platelet Volume 7.9 fL (7.4-10.4); Platelet Count 102 10^3/uL (150-450); Red Blood Count 2.57 10^6 /uL (3.70-4.87); Red Cell Distribution Width 14 % (10-15); White Blood Count 5.9 10^3/uL (3.5-10.8)
[2019-07-29] MEDS: Cholecalciferol TAB* 1000 UNITS PO SCH (08:54)
[2019-07-29] MEDS ORDERED: Acetaminophen TAB* 325 MG PO PRN (09:21)
[2019-07-29] MEDS: Enoxaparin(*) 30 MG/0.3 ML SYR SUBCUT SCH (09:24)
--- NOTE | 2019-07-29 09:42 | PN ---
Subjective Date of Service: 07/29/19 Interval History: Ms. Ontiveros is feeling well today. She is not having pain now, sitting in the chair. She did have some pain when getting up to the chair this morning, but it is now resolved. Appetite is improved from the last few days. Denies CP, SOB, N/ V. No dizziness or headache. No concerns from nursing. Family History: Unchanged from Admission Social History: Unchanged from Admission Past Medical History: Unchanged from Admission Objective Active Medications: Acetaminophen (Tylenol Tab*) 650 mg PO Q4H PRN MILD PAIN or TEMP > 100.4 Cholecalciferol (Vitamin D Tab*) 2,000 units PO QAM [facility] Docusate Sodium (Colace Cap*) 100 mg PO BID PRN CONSTIPATION Enoxaparin Sodium (Lovenox(*)) 30 mg SUBCUT Q24H [facility] Cefazolin Sodium 1 gm/ Sodium (Chloride) 50 mls @ 200 mls/hr IVPB Q8H [facility] Magnesium Hydroxide (Milk Of Magnesia Liq*) 30 ml PO BID PRN CONSTIPATION Morphine Sulfate (Morphine Inj (Syringe))*) 2 mg IV Q4H PRN severe pain Oxycodone/Acetaminophen (Percocet 5/325 Tab*) 1 tab PO Q4H PRN moderate to severe pain Polyethylene Glycol/Electrolytes (Miralax*) 17 gm PO DAILY PRN CONSTIPATION Senna (Senokot 8.6 Mg Tab*) 1 tab PO BEDTIME PRN CONSTIPATION Tramadol HCl (Ultram*) 50 mg PO Q6H PRN PAIN - MODERATE Vital Signs - 8 hr 07/29/19 07/29/19 07/29/19 02:12 03:50 04:16 Temperature 98.8 F Pulse Rate 75 Respiratory 17 17 16 Rate Blood Pressure 106/50 (mmHg) O2 Sat by Pulse 99 Oximetry 07/29/19 07/29/19 07/29/19 06:25 07:46 08:53 Temperature 98.9 F Pulse Rate 78 Respiratory 17 16 16 Rate Blood Pressure 97/49 (mmHg) O2 Sat by Pulse 97 Oximetry Oxygen Devices in Use Now: None Appearance: Elderly female sitting in chair in NAD Ears/Nose/Mouth/Throat: Mucous Membranes Moist Neck: NL Appearance and Movements; NL JVP, Trachea Midline Respiratory: Symmetrical Chest Expansion and Respiratory Effort, Clear to Auscultation Cardiovascular: NL Sounds; No Murmurs; No JVD, RRR Abdominal: NL Sounds; No Tenderness; No Distention Extremities: No Edema Neurological: Alert and Oriented x 3 Lines/Tubes/Other Access: Clean, Dry and Intact Peripheral IV Nutrition: Taking PO's Result Diagrams: 07/29/19 05:58 07/28/19 05:56 Assess/Plan/Problems-Billing Assessment: Ms Ontiveros is a 68 yo F with no significant PMH who presented to [facility] after a mechanical fall where she sustained a R subtrochanteric femur fracture, now s/p ORIF on 07/27/19. - Patient Problems (1) Fracture, subtrochanteric, right femur, closed Code(s): S72.21XA - DISPLACED SUBTROCHANTERIC FRACTURE OF RIGHT FEMUR, INIT Comment: - Right hip fracture s/p mechanical fall - S/p right hip ORIF with Dr. Barraza, POD #2 - Management per Ortho - PT/OT - Continue pain control and bowel regimen (2) Anemia Code(s): D64.9 - ANEMIA, UNSPECIFIED Comment: - Hgb 12.4 at admission, today 7.5 - Secondary to blood loss from injury/surgery; Ortho reported large amount of bleeding within the hip, but not significant blood loss perioperatively - Received 2 units postop - Transfuse 1 unit PRBC and recheck in AM (3) Thrombocytopenia Code(s): D69.6 - THROMBOCYTOPENIA, UNSPECIFIED Comment: - Stable, no active bleeding - Likely secondary to blood loss from surgery (4) DVT prophylaxis Code(s): Z29.9 - ENCOUNTER FOR PROPHYLACTIC MEASURES, UNSPECIFIED Comment: - SCDs; hold Lovenox today per Ortho (5) Full code status Code(s): Z78.9 - OTHER SPECIFIED HEALTH STATUS Comment: Status and Disposition: Inpatient. PMRU referral placed. Attending: Bari Payne
--- NOTE | 2019-07-29 10:53 | PN ---
Progress Note - Progress Note Date of Service: 07/29/19 SOAP: Subjective: Pt seen and examined sitting in chair. No complaint of pain. No complaint otherwise. Denies CP, SOB, F/C. Vital Signs: Temp Pulse Resp BP Pulse Ox 98.5 F 75 16 100/41 100 07/29/19 10:20 07/29/19 10:20 07/29/19 10:20 07/29/19 10:20 07/29/19 10:20 Laboratory Last Values WBC 5.9 10^3/uL (3.5-10.8) 07/29/19 05:58 RBC 2.57 10^6 /uL (3.70-4.87) L 07/29/19 05:58 Hgb 7.5 g/dL (12.0-16.0) L 07/29/19 05:58 Hct 21 % (35-47) L 07/29/19 05:58 MCV 82 fL (80-97) 07/29/19 05:58 MCH 29 pg (27-31) 07/29/19 05:58 MCHC 36 g/dL (31-36) 07/29/19 05:58 RDW 14 % (10-15) 07/29/19 05:58 Plt Count 102 10^3/uL (150-450) L 07/29/19 05:58 MPV 7.9 fL (7.4-10.4) 07/29/19 05:58 Neut % (Auto) 78.9 % 07/29/19 05:58 Lymph % (Auto) 10.6 % 07/29/19 05:58 [place] % (Auto) 9.2 % 07/29/19 05:58 Eos % (Auto) 1.0 % 07/29/19 05:58 Baso % (Auto) 0.3 % 07/29/19 05:58 Absolute Neuts (auto) 4.6 10^3/ul (1.5-7.7) 07/29/19 05:58 Absolute Lymphs (auto) 0.6 10^3/ul (1.0-4.8) L 07/29/19 05:58 Absolute Monos (auto) 0.5 10^3/ul (0-0.8) 07/29/19 05:58 Absolute Eos (auto) 0.1 10^3/ul (0-0.6) 07/29/19 05:58 Absolute Basos (auto) 0.0 10^3/ul (0-0.2) 07/29/19 05:58 Absolute Nucleated RBC 0.0 10^3/ul 07/29/19 05:58 Nucleated RBC % 0.0 07/29/19 05:58 INR (Anticoag Therapy) 1.03 (0.82-1.09) 07/26/19 14:18 Sodium 137 mmol/L (135-145) 07/28/19 05:56 Potassium 4.1 mmol/L (3.5-5.0) 07/28/19 05:56 Chloride 107 mmol/L (101-111) 07/28/19 05:56 Carbon Dioxide 26 mmol/L (22-32) 07/28/19 05:56 Anion Gap 4 mmol/L (2-11) 07/28/19 05:56 BUN 15 mg/dL (6-24) 07/28/19 05:56 Creatinine 0.67 mg/dL (0.51-0.95) 07/28/19 05:56 Est GFR ( Amer) 105.3 (>60) 07/28/19 05:56 Est GFR (Non-Af Amer) 87.0 (>60) 07/28/19 05:56 BUN/Creatinine Ratio 22.4 (8-20) H 07/28/19 05:56 Glucose 112 mg/dL (70-100) H 07/28/19 05:56 Calcium 7.4 mg/dL (8.6-10.3) L 07/28/19 05:56 Total Bilirubin 0.40 mg/dL (0.2-1.0) 07/26/19 14:27 AST 17 U/L (13-39) 07/26/19 14:27 ALT 12 U/L (7-52) 07/26/19 14:27 Alkaline Phosphatase 58 U/L (34-104) 07/26/19 14:27 Total Protein 6.0 g/dL (6.4-8.9) L 07/26/19 14:27 Albumin 3.9 g/dL (3.2-5.2) 07/26/19 14:27 Globulin 2.1 g/dL (2-4) 07/26/19 14:27 Albumin/Globulin Ratio 1.9 (1-3) 07/26/19 14:27 Urine Color Yellow 07/26/19 16:14 Urine Appearance Clear 07/26/19 16:14 Urine pH 7.0 (5-9) 07/26/19 16:14 Ur Specific [place] 1.018 (1.010-1.030) 07/26/19 16:14 Urine Protein Negative (Negative) 07/26/19 16:14 Urine Ketones Trace (Negative) A 07/26/19 16:14 Urine Blood Negative (Negative) 07/26/19 16:14 Urine Nitrate Negative (Negative) 07/26/19 16:14 Urine Bilirubin Negative (Negative) 07/26/19 16:14 Urine Urobilinogen Negative (Negative) 07/26/19 16:14 Ur Leukocyte Esterase Negative (Negative) 07/26/19 16:14 Urine Glucose Negative (Negative) 07/26/19 16:14 Urine Ascorbic Acid * (Negative) A 07/26/19 16:14 Blood Type A Positive 07/26/19 14:27 Antibody Screen Negative 07/26/19 14:27 Crossmatch See Detail 07/26/19 14:27 Objective: A&O x3, NAD Dressing changed, incision C/D/I, Mild edema, Calves soft and nontender, NVI distally. Assessment: 68 yo female s/p ORIF right hip gamma nail POD #2 Plan: OOB, PT/OT TTWB Pain control DVT prophylaxis - Hold Lovenox today will resume tomorrow Anemia - agree with transfusion Plan discussed with Dr. Loyola D/C planning - likely will need rehab
[2019-07-30] MEDS: oxyCODONE/Acetamin 5/325 MG* TAB PO PRN ×2 (03:57→18:05)
[2019-07-30 05:01] LABS: ABS Eosinophils 0.1 10^3/ul (0-0.6); ABS Lymphocytes 0.5 10^3/ul (1.0-4.8); ABS Monocytes 0.4 10^3/ul (0-0.8); ABS Neutrophils 4.7 10^3/ul (1.5-7.7); Eosinophil % 2.6 %; Hematocrit 22 % (35-47); Hemoglobin 7.6 g/dL (12.0-16.0); Lymphocyte % 8.3 %; Mean Corpuscular HGB Conc 35 g/dL (31-36); Mean Corpuscular Hemoglobin 30 pg (27-31); Mean Corpuscular Volume 84 fL (80-97); Platelet Count 108 10^3/uL (150-450); Red Blood Count 2.58 10^6 /uL (3.70-4.87); Red Cell Distribution Width 14 % (10-15); White Blood Count 5.7 10^3/uL (3.5-10.8)
[2019-07-30] MEDS: Enoxaparin(*) 30 MG/0.3 ML SYR SUBCUT SCH ×2 (08:32→08:43)
[2019-07-30] MEDS: Cholecalciferol TAB* 1000 UNITS PO SCH (08:43)
[2019-07-30] MEDS: traMADol TAB* 50 MG PO PRN ×2 (08:56→16:10)
--- NOTE | 2019-07-30 09:56 | PN ---
Progress Note - Progress Note Date of Service: 07/30/19 SOAP: Subjective: []Pt seen and examined at bedside. She feels well without complaints. Pain is well controlled. Denies CP, SOB, dizziness, lightheadedness, nausea. Objective: []Gen: NAD, A&Ox3 RLE: Dressing changed, incisions CDI, thigh soft, df/pf intact, dp2+, sensation intact to light touch distally Calves supple and nontender without erythema, edema or palpable cords Assessment: 68 yo female s/p ORIF right hip gamma nail POD #3 Plan: OOB, PT/OT TTWB RLE DVT prophylaxis - Lovenox 30 mg sq qd x 30 days post op Anemia - monitor H&H Ready for DC from ortho standpoint Vital Signs Temp 97.7 F 07/30/19 07:41 Pulse 75 07/30/19 07:41 Resp 18 07/30/19 08:56 BP 95/47 07/30/19 07:41 Pulse Ox 100 07/30/19 07:41 Intake & Output 07/29/19 07/30/19 07/30/19 18:59 06:59 18:59 Intake Total 1638 1680 Output Total 950 1300 Balance 688 380 Intake: IV Fluids 138 ABX - CEFAZOLIN 55 NS (0.9%) 83 Oral 1200 1680 Packed Cells 300 Output: Urine 950 1300 Laboratory Last Values WBC 5.7 10^3/uL (3.5-10.8) 07/30/19 04:45 RBC 2.58 10^6 /uL (3.70-4.87) L 07/30/19 04:45 Hgb 7.6 g/dL (12.0-16.0) L 07/30/19 04:45 Hct 22 % (35-47) L 07/30/19 04:45 MCV 84 fL (80-97) 07/30/19 04:45 MCH 30 pg (27-31) 07/30/19 04:45 MCHC 35 g/dL (31-36) 07/30/19 04:45 RDW 14 % (10-15) 07/30/19 04:45 Plt Count 108 10^3/uL (150-450) L 07/30/19 04:45 MPV 8.0 fL (7.4-10.4) 07/30/19 04:45 Neut % (Auto) 82.0 % 07/30/19 04:45 Lymph % (Auto) 8.3 % 07/30/19 04:45 [place] % (Auto) 7.0 % 07/30/19 04:45 Eos % (Auto) 2.6 % 07/30/19 04:45 Baso % (Auto) 0.1 % 07/30/19 04:45 Absolute Neuts (auto) 4.7 10^3/ul (1.5-7.7) 07/30/19 04:45 Absolute Lymphs (auto) 0.5 10^3/ul (1.0-4.8) L 07/30/19 04:45 Absolute Monos (auto) 0.4 10^3/ul (0-0.8) 07/30/19 04:45 Absolute Eos (auto) 0.1 10^3/ul (0-0.6) 07/30/19 04:45 Absolute Basos (auto) 0.0 10^3/ul (0-0.2) 07/30/19 04:45 Absolute Nucleated RBC 0.0 10^3/ul 07/30/19 04:45 Nucleated RBC % 0.0 07/30/19 04:45 INR (Anticoag Therapy) 1.03 (0.82-1.09) 07/26/19 14:18 Sodium 137 mmol/L (135-145) 07/28/19 05:56 Potassium 4.1 mmol/L (3.5-5.0) 07/28/19 05:56 Chloride 107 mmol/L (101-111) 07/28/19 05:56 Carbon Dioxide 26 mmol/L (22-32) 07/28/19 05:56 Anion Gap 4 mmol/L (2-11) 07/28/19 05:56 BUN 15 mg/dL (6-24) 07/28/19 05:56 Creatinine 0.67 mg/dL (0.51-0.95) 07/28/19 05:56 Est GFR ( Amer) 105.3 (>60) 07/28/19 05:56 Est GFR (Non-Af Amer) 87.0 (>60) 07/28/19 05:56 BUN/Creatinine Ratio 22.4 (8-20) H 07/28/19 05:56 Glucose 112 mg/dL (70-100) H 07/28/19 05:56 Calcium 7.4 mg/dL (8.6-10.3) L 07/28/19 05:56 Total Bilirubin 0.40 mg/dL (0.2-1.0) 07/26/19 14:27 AST 17 U/L (13-39) 07/26/19 14:27 ALT 12 U/L (7-52) 07/26/19 14:27 Alkaline Phosphatase 58 U/L (34-104) 07/26/19 14:27 Total Protein 6.0 g/dL (6.4-8.9) L 07/26/19 14:27 Albumin 3.9 g/dL (3.2-5.2) 07/26/19 14:27 Globulin 2.1 g/dL (2-4) 07/26/19 14:27 Albumin/Globulin Ratio 1.9 (1-3) 07/26/19 14:27 Urine Color Yellow 07/26/19 16:14 Urine Appearance Clear 07/26/19 16:14 Urine pH 7.0 (5-9) 07/26/19 16:14 Ur Specific [place] 1.018 (1.010-1.030) 07/26/19 16:14 Urine Protein Negative (Negative) 07/26/19 16:14 Urine Ketones Trace (Negative) A 07/26/19 16:14 Urine Blood Negative (Negative) 07/26/19 16:14 Urine Nitrate Negative (Negative) 07/26/19 16:14 Urine Bilirubin Negative (Negative) 07/26/19 16:14 Urine Urobilinogen Negative (Negative) 07/26/19 16:14 Ur Leukocyte Esterase Negative (Negative) 07/26/19 16:14 Urine Glucose Negative (Negative) 07/26/19 16:14 Urine Ascorbic Acid * (Negative) A 07/26/19 16:14 Blood Type A Positive 07/26/19 14:27 Antibody Screen Negative 07/26/19 14:27 Crossmatch See Detail 07/26/19 14:27
--- NOTE | 2019-07-30 12:17 | PN ---
Subjective Date of Service: 07/30/19 Interval History: Ms. Ontiveros is feeling well this morning. She offers no complaints. Admits to some hip pain, but it is generally well managed. Denies CP, SOB, dizziness. Good appetite. Hoping to be accepted into PMRU. No concerns from nursing. Family History: Unchanged from Admission Social History: Unchanged from Admission Past Medical History: Unchanged from Admission Objective Active Medications: Acetaminophen (Tylenol Tab*) 650 mg PO Q4H PRN MILD PAIN or TEMP > 100.4 Cholecalciferol (Vitamin D Tab*) 2,000 units PO QAM JANINA Docusate Sodium (Colace Cap*) 100 mg PO BID PRN CONSTIPATION Enoxaparin Sodium (Lovenox(*)) 30 mg SUBCUT Q24H JANINA Magnesium Hydroxide (Milk Of Magnesia Liq*) 30 ml PO BID PRN CONSTIPATION Morphine Sulfate (Morphine Inj (Syringe))*) 2 mg IV Q4H PRN severe pain Oxycodone/Acetaminophen (Percocet 5/325 Tab*) 1 tab PO Q4H PRN moderate to severe pain Polyethylene Glycol/Electrolytes (Miralax*) 17 gm PO DAILY PRN CONSTIPATION Senna (Senokot 8.6 Mg Tab*) 1 tab PO BEDTIME PRN CONSTIPATION Tramadol HCl (Ultram*) 50 mg PO Q6H PRN PAIN - MODERATE Vital Signs - 8 hr 07/30/19 07/30/19 07/30/19 06:57 07:41 08:00 Temperature 97.7 F Pulse Rate 75 Respiratory 16 17 18 Rate Blood Pressure 95/47 (mmHg) O2 Sat by Pulse 100 Oximetry 07/30/19 07/30/19 07/30/19 08:56 10:28 11:06 Temperature 97.4 F Pulse Rate 79 Respiratory 18 16 17 Rate Blood Pressure 95/49 (mmHg) O2 Sat by Pulse 100 Oximetry Oxygen Devices in Use Now: None Appearance: Elderly female sitting in chair in NAD Ears/Nose/Mouth/Throat: Mucous Membranes Moist Neck: NL Appearance and Movements; NL JVP, Trachea Midline Respiratory: Symmetrical Chest Expansion and Respiratory Effort, Clear to Auscultation Cardiovascular: NL Sounds; No Murmurs; No JVD, RRR Abdominal: NL Sounds; No Tenderness; No Distention Extremities: - - Mild nonpitting RLE Neurological: Alert and Oriented x 3 Lines/Tubes/Other Access: Clean, Dry and Intact Peripheral IV Nutrition: Taking PO's Result Diagrams: 07/30/19 04:45 07/28/19 05:56 Assess/Plan/Problems-Billing Assessment: Ms Ontiveros is a 68 yo F with no significant PMH who [place] [facility] [place] where she sustained a R subtrochanteric femur fracture, now s/p ORIF on 07/27/19. - Patient Problems (1) Fracture, subtrochanteric, right femur, closed Code(s): S72.21XA - DISPLACED SUBTROCHANTERIC FRACTURE OF RIGHT FEMUR, INIT Comment: - Right hip fracture s/p mechanical fall - S/p right hip ORIF with Dr. Barraza, POD #3 - Management per Ortho - PT/OT - Continue pain control and bowel regimen (2) Anemia Code(s): D64.9 - ANEMIA, UNSPECIFIED Comment: - No significant improvement in Hgb today after PRBC yesterday - Secondary to acute blood loss from injury/surgery; Ortho reported large amount of bleeding within the hip, but not significant blood loss perioperatively - Received 2 units postop and 1 unit 07/29 - Check CBC in AM (3) Thrombocytopenia Code(s): D69.6 - THROMBOCYTOPENIA, UNSPECIFIED Comment: - Stable, no active bleeding - Likely secondary to blood loss from surgery (4) DVT prophylaxis Code(s): Z29.9 - ENCOUNTER FOR PROPHYLACTIC MEASURES, UNSPECIFIED Comment: - Lovenox per Ortho (5) Full code status Code(s): Z78.9 - OTHER SPECIFIED HEALTH STATUS Comment: Status and Disposition: Inpatient. PMRU referral pending. Attending: Hira Diehl
[2019-07-30] MEDS: Magnesium Hydroxide LIQ* 30 ML UDC PO PRN ×2 (12:31→21:30)
[2019-07-30] MEDS: Docusate CAP* 100 MG PO PRN (21:29)
[2019-07-31 06:36] LABS: ABS Eosinophils 0.1 10^3/ul (0-0.6); ABS Lymphocytes 0.4 10^3/ul (1.0-4.8); ABS Monocytes 0.4 10^3/ul (0-0.8); ABS Neutrophils 4.5 10^3/ul (1.5-7.7); Eosinophil % 2.6 %; Hematocrit 21 % (35-47); Hemoglobin 7.6 g/dL (12.0-16.0); Lymphocyte % 7.4 %; Mean Corpuscular HGB Conc 36 g/dL (31-36); Mean Corpuscular Hemoglobin 30 pg (27-31); Mean Corpuscular Volume 84 fL (80-97); Mean Platelet Volume 7.4 fL (7.4-10.4); Platelet Count 141 10^3/uL (150-450); Red Blood Count 2.51 10^6 /uL (3.70-4.87); Red Cell Distribution Width 15 % (10-15); White Blood Count 5.4 10^3/uL (3.5-10.8)
[2019-07-31] MEDS: Docusate CAP* 100 MG PO PRN (07:55)
[2019-07-31] MEDS: Cholecalciferol TAB* 1000 UNITS PO SCH (07:55)
[2019-07-31] MEDS: Enoxaparin(*) 30 MG/0.3 ML SYR SUBCUT SCH (08:55)
--- NOTE | 2019-07-31 11:29 | PN ---
Subjective Date of Service: 07/31/19 Interval History: Ms. Ontiveros is feeling well this morning. She has not yet been out of bed, but not having any significant pain. Slept well overnight. She is very disappointed that her insurance denied her stay in [facility] and would like to appeal. No concerns from nursing. Family History: Unchanged from Admission Social History: Unchanged from Admission Past Medical History: Unchanged from Admission Objective Active Medications: Acetaminophen (Tylenol Tab*) 650 mg PO Q4H PRN MILD PAIN or TEMP > 100.4 Cholecalciferol (Vitamin D Tab*) 2,000 units PO QAM JANINA Docusate Sodium (Colace Cap*) 100 mg PO BID PRN CONSTIPATION Enoxaparin Sodium (Lovenox(*)) 30 mg SUBCUT Q24H JANINA Magnesium Hydroxide (Milk Of Magnesia Liq*) 30 ml PO BID PRN CONSTIPATION Morphine Sulfate (Morphine Inj (Syringe))*) 2 mg IV Q4H PRN severe pain Oxycodone/Acetaminophen (Percocet 5/325 Tab*) 1 tab PO Q4H PRN moderate to severe pain Polyethylene Glycol/Electrolytes (Miralax*) 17 gm PO DAILY PRN CONSTIPATION Senna (Senokot 8.6 Mg Tab*) 1 tab PO BEDTIME PRN CONSTIPATION Tramadol HCl (Ultram*) 50 mg PO Q6H PRN PAIN - MODERATE Vital Signs - 8 hr 07/31/19 07/31/19 07:24 08:00 Temperature 98.5 F Pulse Rate 76 Respiratory 16 16 Rate Blood Pressure 101/51 (mmHg) O2 Sat by Pulse 97 Oximetry Oxygen Devices in Use Now: None Appearance: Elderly female lying in bed in [facility] Ears/Nose/Mouth/Throat: Mucous Membranes Moist Neck: NL Appearance and Movements; NL JVP, Trachea Midline Respiratory: Symmetrical Chest Expansion and Respiratory Effort, Clear to Auscultation Cardiovascular: NL Sounds; No Murmurs; No JVD, RRR Abdominal: NL Sounds; No Tenderness; No Distention Extremities: No Edema Neurological: Alert and Oriented x 3 Lines/Tubes/Other Access: Clean, Dry and Intact Peripheral IV Nutrition: Taking PO's Result Diagrams: 07/31/19 06:23 07/28/19 05:56 Assess/Plan/Problems-Billing Assessment: Ms Ontiveros is a 68 yo F with no significant PMH who presented to [facility] after a mechanical fall where she sustained a R subtrochanteric femur fracture, now s/p ORIF on 07/27/19. - Patient Problems (1) Fracture, subtrochanteric, right femur, closed Code(s): S72.21XA - DISPLACED SUBTROCHANTERIC FRACTURE OF RIGHT FEMUR, INIT Comment: - Right hip fracture s/p mechanical fall - S/p right hip ORIF with Dr. Barraza, POD #4 - Management per Ortho - PT/OT - Continue pain control and bowel regimen (2) Anemia Code(s): D64.9 - ANEMIA, UNSPECIFIED Comment: - No significant improvement in Hgb today after PRBC but remains asymptomatic - Secondary to acute blood loss from injury/surgery; Ortho reported large amount of bleeding within the hip, but not significant blood loss perioperatively - Received 2 units postop and 1 unit 07/29 - Continue to trend (3) Thrombocytopenia Code(s): D69.6 - THROMBOCYTOPENIA, UNSPECIFIED Comment: - Stable, no active bleeding - Likely secondary to blood loss from surgery (4) DVT prophylaxis Code(s): Z29.9 - ENCOUNTER FOR PROPHYLACTIC MEASURES, UNSPECIFIED Comment: - Lovenox per Ortho (5) Full code status Code(s): Z78.9 - OTHER SPECIFIED HEALTH STATUS Comment: Status and Disposition: Inpatient. Medically stable for discharge and cleared by Ortho. Pending [facility] bed offer. Attending: Hira Diehl
--- NOTE | 2019-07-31 14:09 | PN ---
Progress Note - Progress Note Date of Service: 07/31/19 SOAP: Subjective: []Pt seen and examined at bedside. She feels well without CP, SOB, dizziness, nausea. No R hip pain at rest. Objective: []Gen: NAD, appears well RLE: Dressings changed, incisions CDI without erythema, thigh is swollen but soft and nontender. DF/PF intact, DP2+, sensation intact to light touch distally Calves supple and nontender Assessment: 68 yo female s/p ORIF right hip gamma nail POD #4 Plan: OOB, PT/OT TTWB RLE DVT prophylaxis - Lovenox 30 mg sq qd x 30 days post op Anemia stable today - monitor H&H Ready for DC from ortho standpoint Vital Signs Temp 98.9 F 07/31/19 11:27 Pulse 98 07/31/19 11:27 Resp 16 07/31/19 11:27 BP 112/57 07/31/19 11:27 Pulse Ox 98 07/31/19 11:27 Intake & Output 07/30/19 07/31/19 07/31/19 18:59 06:59 18:59 Intake Total 530 650 Output Total 400 90 Balance 130 560 Intake: Oral 530 650 Output: Urine 400 90 Other: Estimated Void Small Medium Date of Last Bowel 07/31/19 07/31/19 Movement # Bowel Movements 1 Estimated Stool Amount Small Medium Laboratory Last Values WBC 5.4 10^3/uL (3.5-10.8) 07/31/19 06:23 RBC 2.51 10^6 /uL (3.70-4.87) L 07/31/19 06:23 Hgb 7.6 g/dL (12.0-16.0) L 07/31/19 06:23 Hct 21 % (35-47) L 07/31/19 06:23 MCV 84 fL (80-97) 07/31/19 06:23 MCH 30 pg (27-31) 07/31/19 06:23 MCHC 36 g/dL (31-36) 07/31/19 06:23 RDW 15 % (10-15) 07/31/19 06:23 Plt Count 141 10^3/uL (150-450) L 07/31/19 06:23 MPV 7.4 fL (7.4-10.4) 07/31/19 06:23 Neut % (Auto) 83.1 % 07/31/19 06:23 Lymph % (Auto) 7.4 % 07/31/19 06:23 Real % (Auto) 6.6 % 07/31/19 06:23 Eos % (Auto) 2.6 % 07/31/19 06:23 Baso % (Auto) 0.3 % 07/31/19 06:23 Absolute Neuts (auto) 4.5 10^3/ul (1.5-7.7) 07/31/19 06:23 Absolute Lymphs (auto) 0.4 10^3/ul (1.0-4.8) L 07/31/19 06:23 Absolute Monos (auto) 0.4 10^3/ul (0-0.8) 07/31/19 06:23 Absolute Eos (auto) 0.1 10^3/ul (0-0.6) 07/31/19 06:23 Absolute Basos (auto) 0.0 10^3/ul (0-0.2) 07/31/19 06:23 Absolute Nucleated RBC 0.0 10^3/ul 07/31/19 06:23 Nucleated RBC % 0.0 07/31/19 06:23 Hem Pathologist Commnt 07/28/19 05:56 INR (Anticoag Therapy) 1.03 (0.82-1.09) 07/26/19 14:18 Sodium 137 mmol/L (135-145) 07/28/19 05:56 Potassium 4.1 mmol/L (3.5-5.0) 07/28/19 05:56 Chloride 107 mmol/L (101-111) 07/28/19 05:56 Carbon Dioxide 26 mmol/L (22-32) 07/28/19 05:56 Anion Gap 4 mmol/L (2-11) 07/28/19 05:56 BUN 15 mg/dL (6-24) 07/28/19 05:56 Creatinine 0.67 mg/dL (0.51-0.95) 07/28/19 05:56 Est GFR ( Amer) 105.3 (>60) 07/28/19 05:56 Est GFR (Non-Af Amer) 87.0 (>60) 07/28/19 05:56 BUN/Creatinine Ratio 22.4 (8-20) H 07/28/19 05:56 Glucose 112 mg/dL (70-100) H 07/28/19 05:56 Calcium 7.4 mg/dL (8.6-10.3) L 07/28/19 05:56 Total Bilirubin 0.40 mg/dL (0.2-1.0) 07/26/19 14:27 AST 17 U/L (13-39) 07/26/19 14:27 ALT 12 U/L (7-52) 07/26/19 14:27 Alkaline Phosphatase 58 U/L (34-104) 07/26/19 14:27 Total Protein 6.0 g/dL (6.4-8.9) L 07/26/19 14:27 Albumin 3.9 g/dL (3.2-5.2) 07/26/19 14:27 Globulin 2.1 g/dL (2-4) 07/26/19 14:27 Albumin/Globulin Ratio 1.9 (1-3) 07/26/19 14:27 Urine Color Yellow 07/26/19 16:14 Urine Appearance Clear 07/26/19 16:14 Urine pH 7.0 (5-9) 07/26/19 16:14 Ur Specific [place] 1.018 (1.010-1.030) 07/26/19 16:14 Urine Protein Negative (Negative) 07/26/19 16:14 Urine Ketones Trace (Negative) A 07/26/19 16:14 Urine Blood Negative (Negative) 07/26/19 16:14 Urine Nitrate Negative (Negative) 07/26/19 16:14 Urine Bilirubin Negative (Negative) 07/26/19 16:14 Urine Urobilinogen Negative (Negative) 07/26/19 16:14 Ur Leukocyte Esterase Negative (Negative) 07/26/19 16:14 Urine Glucose Negative (Negative) 07/26/19 16:14 Urine Ascorbic Acid * (Negative) A 07/26/19 16:14 Blood Type A Positive 07/26/19 14:27 Antibody Screen Negative 07/26/19 14:27 Crossmatch See Detail 07/26/19 14:27
[2019-07-31] MEDS: oxyCODONE/Acetamin 5/325 MG* TAB PO PRN (19:40)
[2019-08-01 05:59] LABS: ABS Eosinophils 0.2 10^3/ul (0-0.6); ABS Lymphocytes 0.5 10^3/ul (1.0-4.8); ABS Monocytes 0.4 10^3/ul (0-0.8); ABS Neutrophils 3.2 10^3/ul (1.5-7.7); Hematocrit 22 % (35-47); Hemoglobin 7.9 g/dL (12.0-16.0); Lymphocyte % 11.4 %; Mean Corpuscular HGB Conc 36 g/dL (31-36); Mean Corpuscular Hemoglobin 30 pg (27-31); Mean Corpuscular Volume 85 fL (80-97); Mean Platelet Volume 7.1 fL (7.4-10.4); Nucleated Red Blood Cells % 0.1; Platelet Count 193 10^3/uL (150-450); Red Blood Count 2.63 10^6 /uL (3.70-4.87); Red Cell Distribution Width 15 % (10-15); White Blood Count 4.3 10^3/uL (3.5-10.8)
[2019-08-01] MEDS: traMADol TAB* 50 MG PO PRN (08:18)
[2019-08-01] MEDS: Cholecalciferol TAB* 1000 UNITS PO SCH (08:18)
[2019-08-01] MEDS: Enoxaparin(*) 30 MG/0.3 ML SYR SUBCUT SCH (08:18)
--- NOTE | 2019-08-01 11:30 | PN ---
Subjective Date of Service: 08/01/19 Interval History: Ms. Ontiveros is feeling well today. Pain is well managed. She notes that the edema in her RLE is significantly improved from the last few days. Denies CP or SOB. Still hoping to get into PMRU. No concerns from nursing. Family History: Unchanged from Admission Social History: Unchanged from Admission Past Medical History: Unchanged from Admission Objective Active Medications: Acetaminophen (Tylenol Tab*) 650 mg PO Q4H PRN MILD PAIN or TEMP > 100.4 Cholecalciferol (Vitamin D Tab*) 2,000 units PO QAM JANINA Docusate Sodium (Colace Cap*) 100 mg PO BID PRN CONSTIPATION Enoxaparin Sodium (Lovenox(*)) 30 mg SUBCUT Q24H JANINA Magnesium Hydroxide (Milk Of Magnesia Liq*) 30 ml PO BID PRN CONSTIPATION Morphine Sulfate (Morphine Inj (Syringe))*) 2 mg IV Q4H PRN severe pain Oxycodone/Acetaminophen (Percocet 5/325 Tab*) 1 tab PO Q4H PRN moderate to severe pain Polyethylene Glycol/Electrolytes (Miralax*) 17 gm PO DAILY PRN CONSTIPATION Senna (Senokot 8.6 Mg Tab*) 1 tab PO BEDTIME PRN CONSTIPATION Tramadol HCl (Ultram*) 50 mg PO Q6H PRN PAIN - MODERATE Vital Signs - 8 hr 08/01/19 08/01/19 08/01/19 07:23 08:00 08:18 Temperature 98.8 F Pulse Rate 78 Respiratory 16 18 18 Rate Blood Pressure 111/54 (mmHg) O2 Sat by Pulse 98 Oximetry Oxygen Devices in Use Now: None Appearance: Elderly female lying in bed in NAD Ears/Nose/Mouth/Throat: Mucous Membranes Moist Neck: NL Appearance and Movements; NL JVP, Trachea Midline Respiratory: Symmetrical Chest Expansion and Respiratory Effort, Clear to Auscultation Cardiovascular: NL Sounds; No Murmurs; No JVD, RRR Abdominal: NL Sounds; No Tenderness; No Distention Extremities: - - Mild nonpitting RLE Neurological: Alert and Oriented x 3 Lines/Tubes/Other Access: Clean, Dry and Intact Peripheral IV Nutrition: Taking PO's Result Diagrams: 08/01/19 05:41 07/28/19 05:56 Assess/Plan/Problems-Billing Assessment: Ms Ontiveros is a 68 yo F with no significant PMH who presented to [facility] [place] after a mechanical fall where she sustained a R subtrochanteric femur fracture, now s/p ORIF on 07/27/19. - Patient Problems (1) Fracture, subtrochanteric, right femur, closed Code(s): S72.21XA - DISPLACED SUBTROCHANTERIC FRACTURE OF RIGHT FEMUR, INIT Comment: - Right hip fracture s/p mechanical fall - S/p right hip ORIF with Dr. Barraza, POD #5 - Management per Ortho - PT/OT - Continue pain control and bowel regimen (2) Anemia Code(s): D64.9 - ANEMIA, UNSPECIFIED Comment: - H&H stable and patient remains asymptomatic - Secondary to acute blood loss from injury/surgery; Ortho reported large amount of bleeding within the hip, but not significant blood loss perioperatively - Received 2 units postop and 1 unit 07/29 - Continue to trend (3) Thrombocytopenia Code(s): D69.6 - THROMBOCYTOPENIA, UNSPECIFIED Comment: - Stable, no active bleeding - Likely secondary to blood loss from surgery (4) DVT prophylaxis Code(s): Z29.9 - ENCOUNTER FOR PROPHYLACTIC MEASURES, UNSPECIFIED Comment: - Lovenox per Ortho (5) Full code status Code(s): Z78.9 - OTHER SPECIFIED HEALTH STATUS Comment: Status and Disposition: Inpatient. Medically stable for discharge and cleared by Ortho. Pending PMRU appeal or [facility] bed. Attending: Yazmin Rose
[2019-08-01] MEDS: oxyCODONE/Acetamin 5/325 MG* TAB PO PRN (21:23)
[2019-08-02] MEDS: Cholecalciferol TAB* 1000 UNITS PO SCH (08:44)
[2019-08-02] MEDS: Enoxaparin(*) 30 MG/0.3 ML SYR SUBCUT SCH (08:44)
[2019-08-02] MEDS: traMADol TAB* 50 MG PO PRN ×2 (11:07→21:44)
--- NOTE | 2019-08-02 12:50 | PN ---
Subjective Date of Service: 08/02/19 Interval History: Ms. Ontiveros is feeling well today. She offers no complaints except she is concerned that her PCP was not aware that she is in the hospital. Denies CP, SOB. RLE is improved. She thinks she did well with PT yesterday. No concerns from nursing. Family History: Unchanged from Admission Social History: Unchanged from Admission Past Medical History: Unchanged from Admission Objective Active Medications: Acetaminophen (Tylenol Tab*) 650 mg PO Q4H PRN MILD PAIN or TEMP > 100.4 Cholecalciferol (Vitamin D Tab*) 2,000 units PO QAM JANINA Docusate Sodium (Colace Cap*) 100 mg PO BID PRN CONSTIPATION Enoxaparin Sodium (Lovenox(*)) 30 mg SUBCUT Q24H JANINA Magnesium Hydroxide (Milk Of Magnesia Liq*) 30 ml PO BID PRN CONSTIPATION Morphine Sulfate (Morphine Inj (Syringe))*) 2 mg IV Q4H PRN severe pain Oxycodone/Acetaminophen (Percocet 5/325 Tab*) 1 tab PO Q4H PRN moderate to severe pain Polyethylene Glycol/Electrolytes (Miralax*) 17 gm PO DAILY PRN CONSTIPATION Senna (Senokot 8.6 Mg Tab*) 1 tab PO BEDTIME PRN CONSTIPATION Tramadol HCl (Ultram*) 50 mg PO Q6H PRN PAIN - MODERATE Vital Signs - 8 hr 08/02/19 08/02/19 08/02/19 07:45 08:00 11:07 Temperature 99.4 F Pulse Rate 74 Respiratory 14 18 20 Rate Blood Pressure 92/59 (mmHg) O2 Sat by Pulse 100 Oximetry 08/02/19 11:36 Temperature 99.2 F Pulse Rate 75 Respiratory 16 Rate Blood Pressure 96/49 (mmHg) O2 Sat by Pulse 100 Oximetry Oxygen Devices in Use Now: None Appearance: Elderly female lying in bed in NAD Ears/Nose/Mouth/Throat: Mucous Membranes Moist Neck: NL Appearance and Movements; NL JVP, Trachea Midline Respiratory: Symmetrical Chest Expansion and Respiratory Effort, Clear to Auscultation Cardiovascular: NL Sounds; No Murmurs; No JVD, RRR Extremities: - - Mild nonpitting RLE Neurological: Alert and Oriented x 3 Nutrition: Taking PO's Result Diagrams: 08/01/19 05:41 07/28/19 05:56 Assess/Plan/Problems-Billing Assessment: Ms Ontiveros is a 68 yo F with no significant PMH who [place] [facility] [place] where she sustained a R subtrochanteric femur fracture, now s/p ORIF on 07/27/19. - Patient Problems (1) Fracture, subtrochanteric, right femur, closed Code(s): S72.21XA - DISPLACED SUBTROCHANTERIC FRACTURE OF RIGHT FEMUR, INIT Comment: - Right hip fracture s/p mechanical fall - S/p right hip ORIF with Dr. Barraza, POD #6 - Management per Ortho - PT/OT - Continue pain control and bowel regimen (2) Anemia Code(s): D64.9 - ANEMIA, UNSPECIFIED Comment: - H&H stable and patient remains asymptomatic - Secondary to acute blood loss from injury/surgery; Ortho reported large amount of bleeding within the hip, but not significant blood loss perioperatively - Received 2 units postop and 1 unit 07/29 (3) Thrombocytopenia Code(s): D69.6 - THROMBOCYTOPENIA, UNSPECIFIED Comment: - Stable, no active bleeding - Likely secondary to blood loss from surgery (4) DVT prophylaxis Code(s): Z29.9 - ENCOUNTER FOR PROPHYLACTIC MEASURES, UNSPECIFIED Comment: - Lovenox per Ortho (5) Full code status Code(s): Z78.9 - OTHER SPECIFIED HEALTH STATUS Comment: Status and Disposition: Inpatient. Medically stable for discharge and cleared by Ortho. Pending PMRU appeal or [facility] bed. Attending: Hugh Lucia
--- NOTE | 2019-08-02 14:28 | PN ---
Progress Note - Progress Note Date of Service: 08/01/19 SOAP: Subjective: []Pt seen and examined at bedside. She is feeling well, reports improved pain of R hip and reduced swelling in the right leg. Denies any chest pain, SOB, dizziness, lightheadedness, nausea. Objective: []Gen: NAD, appears well RLE: Dressings changed, incisions CDI without erythema, thigh is soft and nontender, reduced edema today. DF/PF intact, DP2+, sensation intact to light touch distally Calves supple and nontender Assessment: 68 yo female s/p ORIF right hip gamma nail POD #5 Plan: OOB, PT/OT TTWB RLE DVT prophylaxis - Lovenox 30 mg sq qd x 30 days post op Ready for DC from ortho standpoint Vital Signs Temp 99.2 F 08/02/19 11:36 Pulse 75 08/02/19 11:36 Resp 16 08/02/19 11:36 BP 96/49 08/02/19 11:36 Pulse Ox 100 08/02/19 11:36 Intake & Output 08/01/19 08/02/19 08/02/19 18:59 06:59 18:59 Intake Total 1440 1200 Output Total 200 900 200 Balance 1240 300 -200 Intake: Oral 1440 1200 Output: Urine 200 900 200 Other: Estimated Void Large Medium Date of Last Bowel 08/02/2019 Movement # Bowel Movements 1 0 Estimated Stool Amount Medium Small # Voids 2 2 Laboratory Last Values WBC 4.3 10^3/uL (3.5-10.8) 08/01/19 05:41 RBC 2.63 10^6 /uL (3.70-4.87) L 08/01/19 05:41 Hgb 7.9 g/dL (12.0-16.0) L 08/01/19 05:41 Hct 22 % (35-47) L 08/01/19 05:41 MCV 85 fL (80-97) 08/01/19 05:41 MCH 30 pg (27-31) 08/01/19 05:41 MCHC 36 g/dL (31-36) 08/01/19 05:41 RDW 15 % (10-15) 08/01/19 05:41 Plt Count 193 10^3/uL (150-450) 08/01/19 05:41 MPV 7.1 fL (7.4-10.4) L 08/01/19 05:41 Neut % (Auto) 74.4 % 08/01/19 05:41 Lymph % (Auto) 11.4 % 08/01/19 05:41 [place] % (Auto) 9.8 % 08/01/19 05:41 Eos % (Auto) 4.0 % 08/01/19 05:41 Baso % (Auto) 0.4 % 08/01/19 05:41 Absolute Neuts (auto) 3.2 10^3/ul (1.5-7.7) 08/01/19 05:41 Absolute Lymphs (auto) 0.5 10^3/ul (1.0-4.8) L 08/01/19 05:41 Absolute Monos (auto) 0.4 10^3/ul (0-0.8) 08/01/19 05:41 Absolute Eos (auto) 0.2 10^3/ul (0-0.6) 08/01/19 05:41 Absolute Basos (auto) 0.0 10^3/ul (0-0.2) 08/01/19 05:41 Absolute Nucleated RBC 0.0 10^3/ul 08/01/19 05:41 Nucleated RBC % 0.1 08/01/19 05:41 Hem Pathologist Commnt 07/28/19 05:56 INR (Anticoag Therapy) 1.03 (0.82-1.09) 07/26/19 14:18 Sodium 137 mmol/L (135-145) 07/28/19 05:56 Potassium 4.1 mmol/L (3.5-5.0) 07/28/19 05:56 Chloride 107 mmol/L (101-111) 07/28/19 05:56 Carbon Dioxide 26 mmol/L (22-32) 07/28/19 05:56 Anion Gap 4 mmol/L (2-11) 07/28/19 05:56 BUN 15 mg/dL (6-24) 07/28/19 05:56 Creatinine 0.67 mg/dL (0.51-0.95) 07/28/19 05:56 Est GFR ( Amer) 105.3 (>60) 07/28/19 05:56 Est GFR (Non-Af Amer) 87.0 (>60) 07/28/19 05:56 BUN/Creatinine Ratio 22.4 (8-20) H 07/28/19 05:56 Glucose 112 mg/dL (70-100) H 07/28/19 05:56 Calcium 7.4 mg/dL (8.6-10.3) L 07/28/19 05:56 Total Bilirubin 0.40 mg/dL (0.2-1.0) 07/26/19 14:27 AST 17 U/L (13-39) 07/26/19 14:27 ALT 12 U/L (7-52) 07/26/19 14:27 Alkaline Phosphatase 58 U/L (34-104) 07/26/19 14:27 Total Protein 6.0 g/dL (6.4-8.9) L 07/26/19 14:27 Albumin 3.9 g/dL (3.2-5.2) 07/26/19 14:27 Globulin 2.1 g/dL (2-4) 07/26/19 14:27 Albumin/Globulin Ratio 1.9 (1-3) 07/26/19 14:27 Urine Color Yellow 07/26/19 16:14 Urine Appearance Clear 07/26/19 16:14 Urine pH 7.0 (5-9) 07/26/19 16:14 Ur Specific [place] 1.018 (1.010-1.030) 07/26/19 16:14 Urine Protein Negative (Negative) 07/26/19 16:14 Urine Ketones Trace (Negative) A 07/26/19 16:14 Urine Blood Negative (Negative) 07/26/19 16:14 Urine Nitrate Negative (Negative) 07/26/19 16:14 Urine Bilirubin Negative (Negative) 07/26/19 16:14 Urine Urobilinogen Negative (Negative) 07/26/19 16:14 Ur Leukocyte Esterase Negative (Negative) 07/26/19 16:14 Urine Glucose Negative (Negative) 07/26/19 16:14 Urine Ascorbic Acid * (Negative) A 07/26/19 16:14 Blood Type A Positive 07/26/19 14:27 Antibody Screen Negative 07/26/19 14:27 Crossmatch See Detail 07/26/19 14:27
--- NOTE | 2019-08-02 21:23 | DS ---
CC: Dr. Suyapa Nevarez; Dr. Jose Barraza * DISCHARGE SUMMARY: DATE OF ADMISSION: 07/26/19 ANTICIPATED DATE OF DISCHARGE: 08/03/19 (this is being dictated one day in advance). PRIMARY CARE PROVIDER: Dr. Suyapa Nevarez. ORTHOPEDIC SURGEON: Dr. Jose Barraza. ATTENDING PHYSICIAN: Dr. Hugh Lucia.* (DICTATED BY TERRIE HUMPHRIES NP) PRIMARY DIAGNOSES: 1. Right subtrochanteric fracture, status post open reduction internal fixation on 07/27/19. 2. Acute blood loss anemia and thrombocytopenia. SECONDARY DIAGNOSIS: None. STUDIES WHILE IN THE HOSPITAL: 1. Chest x-ray on 07/26/19 reads as no active cardiopulmonary disease. 2. Right hip x-ray on 07/26/19 reads as there is a comminuted subtrochanteric right hip fracture with lateral apex angulation and foreshortening. There is mild right hip osteoarthropathy. 3. Right femur x-ray on 07/26/19 reads as persistent, comminuted and angulated subtrochanteric fracture of the right femur. 4. EKG on 07/26/19 shows normal sinus rhythm. Though EKG is very difficult to decipher due to significant artifact. 5. EKG on 07/26/19 shows normal sinus rhythm with a rate of 72. No ST changes. 6. EKG on 07/27/19 shows sinus bradycardia with a rate of 58. 7. Right femur x-ray on 07/27/19 reads as status post operative reduction and internal fixation of a subtrochanteric fracture of the right femur. PROCEDURES WHILE IN THE HOSPITAL: 1. Open reduction internal fixation of the right hip subtrochanteric fracture using a long intramedullary nail with Dr. Barraza on 07/27/19. HISTORY OF PRESENT ILLNESS AND HOSPITAL COURSE: Ms. Ontiveros is a 68-year-old female with no significant past medical history, who presented to the emergency room on 07/26/19 after a fall with subsequent right hip pain. Please see the history and physical by HUGH Scott for complete summary of the events leading up to this hospitalization. In short, the patient slipped on snow outside and immediately had pain in the right hip. In the emergency room, the patient was noted to have a right hip fracture and she was admitted by the hospitalist service. Orthopedics was consulted and indicated that they would plan to operate at the soonest available date. The patient was ultimately taken to the operating room on 07/27/19, where she underwent an ORIF. She tolerated the procedure well, though did have some significant blood loss during surgery. Orthopedics reported that there was a large amount of bleeding within the hip, and she did receive 2 units of blood postoperatively. She otherwise recovered well. H and H was noted to be normal on admission, though did drop as low as 7.5 and 21 on 07/29/19. She did receive an additional unit of blood on 07/29/19 and since that time H and H has remained stable. As of 08/01/19, H and H was noted to be 7.9 and 22. She was also noted to have some mild thrombocytopenia, which as of 08/01/19 was resolved. This was also suspected to be secondary to acute blood loss as it was not present on admission. The patient has been working with Physical Therapy and she has been doing well, though it has been determined that she would benefit from rehab. There has been some difficulty obtaining a rehab bed for the patient, although she now has accepted a subacute rehab bed at [facility]. At this point, the patient reports feeling well. She offers no complaints. Pain has been well managed. She denies any shortness of breath or dizziness. PHYSICAL EXAMINATION: On exam, she is alert and oriented x4 with no focal neurological deficits. Heart has a regular rate and rhythm without murmurs, rubs, or gallops. Lungs are clear to auscultation without rhonchi, wheezes, or rales. Abdomen is soft and nontender to palpation. There is a surgical dressing intact to the right lateral leg. There is mild nonpitting edema to the right lower extremity, which is improved from prior. Ms. Ontiveros is stable for discharge. Most recent vitals are as follows, temp 98.6, heart rate 84, respiratory rate 16, oxygen saturation 97% on room air, blood pressure 97/48. DISCHARGE MEDICATIONS: New: 1. Acetaminophen 650 mg p.o. q.4 hours p.r.n. fever, pain. 2. Lovenox 30 mg subcu daily for 30 days postop. 3. Percocet 5/325 one tab p.o. q.4 hours p.r.n. pain. 4. Senna 1 tab p.o. at bedtime p.r.n. constipation. 5. Tramadol 50 mg p.o. q.6 hours p.r.n. pain. Continued: 1. Cholecalciferol 2000 units p.o. daily. 2. Ascorbic acid 250 mg p.o. daily. DISCHARGE PLAN: Ms. Ontiveros will be discharged to rehab. Activity per Orthopedics will be toe-touch weightbearing on the right lower extremity. Diet will be regular as tolerated. Medications are noted above. The patient has been prescribed pain medications and an appropriate bowel regimen. Per Orthopedics, she will need to have 30 days of Lovenox postoperatively. Again, surgery was on 07/27/19. She should follow up with Orthopedics and her primary care provider as needed. She should return to the emergency room or nearest hospital for any worsening of symptoms, shortness of breath, lightheadedness, dizziness, chest discomfort, high fever, chills, night sweats, loss of consciousness, or any other worrisome signs or symptoms. DISCHARGE CONDITION: Stable. DISCHARGE DISPOSITION: Home. This is a summarized report of a complex medical history and hospital stay. For further details, please see entire medical record. TIME SPENT: Approximately 45 minutes were spent on this discharge. TERRIE HUMPHRIES NP [id number]/[facility] #: [id number] VIOLETTA
[2019-08-03] MEDS: Cholecalciferol TAB* 1000 UNITS PO SCH (10:52)
[2019-08-03] MEDS: Enoxaparin(*) 30 MG/0.3 ML SYR SUBCUT SCH (10:52)
--- NOTE | 2019-08-03 13:44 | PN ---
Subjective Date of Service: 08/03/19 Interval History: Patient has no questions today. She mentions the swelling in her right leg has shifted upwards in her oneill, it was previously in her ankle. She denies fever/ chills, difficulty breathing, chest pain, abd pain. Family History: Unchanged from Admission Social History: Unchanged from Admission Past Medical History: Unchanged from Admission Objective Active Medications: Acetaminophen (Tylenol Tab*) 650 mg PO Q4H PRN PRN Reason: MILD PAIN or TEMP > 100.4 Cholecalciferol (Vitamin D Tab*) 2,000 units PO QAM [facility] Last Admin: 08/03/19 10:52 Dose: 2,000 units Docusate Sodium (Colace Cap*) 100 mg PO BID PRN PRN Reason: CONSTIPATION Last Admin: 07/31/19 07:55 Dose: 100 mg Enoxaparin Sodium (Lovenox(*)) 30 mg SUBCUT Q24H [facility] Last Admin: 08/03/19 10:52 Dose: 30 mg Magnesium Hydroxide (Milk Of Magnesia Liq*) 30 ml PO BID PRN PRN Reason: CONSTIPATION Last Admin: 07/30/19 21:30 Dose: 30 ml Oxycodone/Acetaminophen (Percocet 5/325 Tab*) 1 tab PO Q4H PRN PRN Reason: moderate to severe pain Last Admin: 08/01/19 21:23 Dose: 1 tab Polyethylene Glycol/Electrolytes (Miralax*) 17 gm PO DAILY PRN PRN Reason: CONSTIPATION Last Admin: 07/30/19 21:29 Dose: 17 gm Senna (Senokot 8.6 Mg Tab*) 1 tab PO BEDTIME PRN PRN Reason: CONSTIPATION Last Admin: 07/30/19 21:28 Dose: 1 tab Tramadol HCl (Ultram*) 50 mg PO Q6H PRN PRN Reason: PAIN - MODERATE Last Admin: 08/02/19 21:44 Dose: 50 mg Vital Signs - 8 hr 08/03/19 08/03/19 08/03/19 07:32 11:03 11:17 Temperature 97.8 F 98.6 F Pulse Rate 73 74 Respiratory 14 16 16 Rate Blood Pressure 108/57 101/47 (mmHg) O2 Sat by Pulse 100 100 Oximetry Oxygen Devices in Use Now: None Appearance: thin, elderly white female, sitting in chair, appearing in NAD, eating lunch Eyes: No Scleral Icterus, - - PERRL Ears/Nose/Mouth/Throat: Mucous Membranes Moist Neck: Trachea Midline Respiratory: Symmetrical Chest Expansion and Respiratory Effort, Clear to Auscultation Cardiovascular: NL Sounds; No Murmurs; No JVD, RRR Abdominal: - - abd soft, nontender, nondistended Extremities: No Clubbing, Cyanosis, - - +1 pitting edema pretibially to right LE ; no palpable cord, no calf tenderness Skin: No Rash or Ulcers Neurological: Alert and Oriented x 3, NL Muscle Strength and Tone Result Diagrams: 08/01/19 05:41 07/28/19 05:56 Assess/Plan/Problems-Billing Assessment: Ms Ontiveros is a 68 yo F with no significant PMH who presented to [facility] after a mechanical fall where she sustained a R subtrochanteric femur fracture, now s/p ORIF on 07/27/19. - Patient Problems (1) Fracture, subtrochanteric, right femur, closed Current Visit: Yes Status: Acute Code(s): S72.21XA - DISPLACED SUBTROCHANTERIC FRACTURE OF RIGHT FEMUR, INIT SNOMED Code(s): 774111930 Comment: - Right hip fracture s/p mechanical fall - S/p right hip ORIF with Dr. Barraza, POD #7 - Management per Ortho - PT/OT - Continue pain control and bowel regimen (2) Anemia Current Visit: Yes Status: Acute Code(s): D64.9 - ANEMIA, UNSPECIFIED SNOMED Code(s): 195275262 Comment: - H&H stable and patient remains asymptomatic - Secondary to acute blood loss from injury/surgery; Ortho reported large amount of bleeding within the hip, but not significant blood loss perioperatively - Received 3 total units PRBCs (3) DVT prophylaxis Current Visit: Yes Status: Acute Code(s): Z29.9 - ENCOUNTER FOR PROPHYLACTIC MEASURES, UNSPECIFIED SNOMED Code(s): 023845337 Comment: - Lovenox per Ortho (4) Full code status Current Visit: Yes Status: Acute Code(s): Z78.9 - OTHER SPECIFIED HEALTH STATUS SNOMED Code(s): 371290455 Comment: Status and Disposition: Inpatient. Medically stable for discharge and cleared by Ortho. Unfortunately insurance denied [facility] placement though it was previously approved. Patient lives alone, has stairs in her home, and is unable to use crutches and therefore would be unsafe to be discharged home at this time. CM is appealing insurance denial.
[2019-08-03] MEDS: traMADol TAB* 50 MG PO PRN (19:35)
[2019-08-04] MEDS: traMADol TAB* 50 MG PO PRN ×2 (01:06→10:03)
[2019-08-04 06:55] LABS: ABS Eosinophils 0.3 10^3/ul (0-0.6); ABS Lymphocytes 0.6 10^3/ul (1.0-4.8); ABS Monocytes 0.5 10^3/ul (0-0.8); ABS Neutrophils 3.3 10^3/ul (1.5-7.7); Eosinophil % 5.6 %; Hematocrit 22 % (35-47); Hemoglobin 7.6 g/dL (12.0-16.0); Lymphocyte % 12.6 %; Mean Corpuscular HGB Conc 35 g/dL (31-36); Mean Corpuscular Hemoglobin 30 pg (27-31); Mean Corpuscular Volume 86 fL (80-97); Mean Platelet Volume 6.8 fL (7.4-10.4); Platelet Count 346 10^3/uL (150-450); Red Blood Count 2.54 10^6 /uL (3.70-4.87); Red Cell Distribution Width 15 % (10-15); White Blood Count 4.7 10^3/uL (3.5-10.8)
[2019-08-04] MEDS: Cholecalciferol TAB* 1000 UNITS PO SCH (10:03)
[2019-08-04] MEDS: Enoxaparin(*) 30 MG/0.3 ML SYR SUBCUT SCH (10:04)
--- NOTE | 2019-08-04 18:26 | PN ---
Subjective Date of Service: 08/04/19 Interval History: Patient tells me her insurance company called her yesterday evening to tell her she has been approved for subacute rehab. I notified case management. Patient has no complaints today but does express frustration toward her insurance company. Denies fever/chills, difficulty breathing, chest pain, abd pain. Her hip pain is well controlled. Family History: Unchanged from Admission Social History: Unchanged from Admission Past Medical History: Unchanged from Admission Objective Active Medications: Acetaminophen (Tylenol Tab*) 650 mg PO Q4H PRN PRN Reason: MILD PAIN or TEMP > 100.4 Last Admin: 08/03/19 18:05 Dose: 650 mg Cholecalciferol (Vitamin D Tab*) 2,000 units PO QAM [facility] Last Admin: 08/04/19 10:03 Dose: 2,000 units Docusate Sodium (Colace Cap*) 100 mg PO BID PRN PRN Reason: CONSTIPATION Last Admin: 07/31/19 07:55 Dose: 100 mg Enoxaparin Sodium (Lovenox(*)) 30 mg SUBCUT Q24H [facility] Last Admin: 08/04/19 10:04 Dose: 30 mg Magnesium Hydroxide (Milk Of Magnesia Liq*) 30 ml PO BID PRN PRN Reason: CONSTIPATION Last Admin: 07/30/19 21:30 Dose: 30 ml Oxycodone/Acetaminophen (Percocet 5/325 Tab*) 1 tab PO Q4H PRN PRN Reason: moderate to severe pain Last Admin: 08/01/19 21:23 Dose: 1 tab Polyethylene Glycol/Electrolytes (Miralax*) 17 gm PO DAILY PRN PRN Reason: CONSTIPATION Last Admin: 07/30/19 21:29 Dose: 17 gm Senna (Senokot 8.6 Mg Tab*) 1 tab PO BEDTIME PRN PRN Reason: CONSTIPATION Last Admin: 07/30/19 21:28 Dose: 1 tab Tramadol HCl (Ultram*) 50 mg PO Q6H PRN PRN Reason: PAIN - MODERATE Last Admin: 08/04/19 10:03 Dose: 50 mg Vital Signs - 8 hr 08/04/19 08/04/19 08/04/19 11:17 16:06 18:03 Temperature 97.8 F 99.1 F Pulse Rate 79 74 Respiratory 14 16 18 Rate Blood Pressure 90/55 98/50 (mmHg) O2 Sat by Pulse 100 100 Oximetry Oxygen Devices in Use Now: None Appearance: Thin, elderly white female, laying upright in bed, appearing comfortable and in NAD Eyes: No Scleral Icterus, - - PERRL Ears/Nose/Mouth/Throat: Mucous Membranes Moist Neck: Trachea Midline Respiratory: Symmetrical Chest Expansion and Respiratory Effort, Clear to Auscultation Cardiovascular: NL Sounds; No Murmurs; No JVD, RRR Abdominal: - - abd soft, nontender, nondistended Extremities: No Clubbing, Cyanosis, - - +1 pitting edema to right LE inferiorly to knee Skin: No Rash or Ulcers Neurological: Alert and Oriented x 3, NL Muscle Strength and Tone Result Diagrams: 08/04/19 06:39 07/28/19 05:56 Assess/Plan/Problems-Billing Assessment: Ms Ontiveros is a 68 yo F with no significant PMH who presented to [facility] after a mechanical fall where she sustained a R subtrochanteric femur fracture, now s/p ORIF on 07/27/19. - Patient Problems (1) Fracture, subtrochanteric, right femur, closed Current Visit: Yes Status: Acute Code(s): S72.21XA - DISPLACED SUBTROCHANTERIC FRACTURE OF RIGHT FEMUR, INIT SNOMED Code(s): 679970970 Comment: - Right hip fracture s/p mechanical fall - S/p right hip ORIF with Dr. Barraza, POD #8 - Management per Ortho - PT/OT - Continue pain control and bowel regimen (2) Anemia Current Visit: Yes Status: Acute Code(s): D64.9 - ANEMIA, UNSPECIFIED SNOMED Code(s): 796997891 Comment: - H&H stable and patient remains asymptomatic - Secondary to acute blood loss from injury/surgery; Ortho reported large amount of bleeding within the hip, but not significant blood loss perioperatively - Received 3 total units PRBCs (3) Lower extremity edema Current Visit: Yes Status: Acute Code(s): R60.0 - LOCALIZED EDEMA SNOMED Code(s): 331766577 Comment: -right LE edema, likely consistent with recent surgery but would like to r/o DVT with doppler, pending (4) DVT prophylaxis Current Visit: Yes Status: Acute Code(s): Z29.9 - ENCOUNTER FOR PROPHYLACTIC MEASURES, UNSPECIFIED SNOMED Code(s): 160286287 Comment: - Lovenox per Ortho (5) Full code status Current Visit: Yes Status: Acute Code(s): Z78.9 - OTHER SPECIFIED HEALTH STATUS SNOMED Code(s): 709408915 Comment: Status and Disposition: Inpatient. Medically stable for discharge and cleared by Ortho. Unfortunately insurance denied [facility] placement though it was previously approved. Patient lives alone, has stairs in her home, and is unable to use crutches and therefore would be unsafe to be discharged home at this time. CM is appealing insurance denial.
[2019-08-05 06:32] LABS: EGFR Non-African American 111.6 (>60)
[2019-08-05] MEDS: Ferrous Sulfate TAB* 325 MG PO SCH ×2 (09:47→20:09)
[2019-08-05] MEDS: Cholecalciferol TAB* 1000 UNITS PO SCH (09:47)
[2019-08-05] MEDS: Enoxaparin(*) 30 MG/0.3 ML SYR SUBCUT SCH (09:48)
[2019-08-05] MEDS ORDERED: traMADol TAB* 50 MG PO PRN (09:48)
--- NOTE | 2019-08-05 09:53 | PN ---
Subjective Date of Service: 08/05/19 Interval History: Pt feels well. Has no new complaints. ambulated with PT today Family History: Unchanged from Admission Social History: Unchanged from Admission Past Medical History: Unchanged from Admission Objective Active Medications: Acetaminophen (Tylenol Tab*) 650 mg PO Q4H PRN PRN Reason: MILD PAIN or TEMP > 100.4 Last Admin: 08/03/19 18:05 Dose: 650 mg Cholecalciferol (Vitamin D Tab*) 2,000 units PO QAM [facility] Last Admin: 08/05/19 09:47 Dose: 2,000 units Docusate Sodium (Colace Cap*) 100 mg PO BID PRN PRN Reason: CONSTIPATION Last Admin: 07/31/19 07:55 Dose: 100 mg Enoxaparin Sodium (Lovenox(*)) 30 mg SUBCUT Q24H [facility] Last Admin: 08/05/19 09:48 Dose: 30 mg Ferrous Sulfate (Ferrous Sulfate Tab*) 325 mg PO BID [facility] Last Admin: 08/05/19 09:47 Dose: 325 mg Magnesium Hydroxide (Milk Of Magnesia Liq*) 30 ml PO BID PRN PRN Reason: CONSTIPATION Last Admin: 07/30/19 21:30 Dose: 30 ml Oxycodone/Acetaminophen (Percocet 5/325 Tab*) 1 tab PO Q4H PRN PRN Reason: moderate to severe pain Last Admin: 08/01/19 21:23 Dose: 1 tab Polyethylene Glycol/Electrolytes (Miralax*) 17 gm PO DAILY PRN PRN Reason: CONSTIPATION Last Admin: 07/30/19 21:29 Dose: 17 gm Senna (Senokot 8.6 Mg Tab*) 1 tab PO BEDTIME PRN PRN Reason: CONSTIPATION Last Admin: 07/30/19 21:28 Dose: 1 tab Tramadol HCl (Ultram*) 50 mg PO Q6H PRN PRN Reason: PAIN - MODERATE Vital Signs - 8 hr 08/05/19 08/05/19 03:15 07:26 Temperature 99.0 F 99.2 F Pulse Rate 73 76 Respiratory 16 17 Rate Blood Pressure 108/51 108/51 (mmHg) O2 Sat by Pulse 96 96 Oximetry Oxygen Devices in Use Now: None Appearance: 68 yo f in nAD, aAOx3 Eyes: No Scleral Icterus, PERRLA Ears/Nose/Mouth/Throat: NL Teeth, Lips, Gums, Mucous Membranes Moist Neck: NL Appearance and Movements; NL JVP, Trachea Midline Respiratory: Symmetrical Chest Expansion and Respiratory Effort, Clear to Auscultation Cardiovascular: NL Sounds; No Murmurs; No JVD, RRR Abdominal: NL Sounds; No Tenderness; No Distention Lymphatic: No Cervical Adenopathy Extremities: No Clubbing, Cyanosis, - - R ankle trace edema, r hip wound covered with dressings-not removed Skin: No Nodules or Sclerosis Neurological: Alert and Oriented x 3, NL Muscle Strength and Tone Result Diagrams: 08/04/19 06:39 08/05/19 05:58 Assess/Plan/Problems-Billing Assessment: Ms Ontiveros is a 68 yo F with no significant PMH who presented to [facility] after a mechanical fall where she sustained a R subtrochanteric femur fracture, now s/p ORIF on 07/27/19. - Patient Problems (1) Fracture, subtrochanteric, right femur, closed Comment: - Right hip fracture s/p mechanical fall - S/p right hip ORIF with Dr. Barraza on 07/27/19 - Management per Ortho - PT/OT - Continue pain control and bowel regimen (2) Anemia Comment: - H&H stable and patient remains asymptomatic - Secondary to acute blood loss from injury/surgery; Ortho reported large amount of bleeding within the hip, but not significant blood loss perioperatively - Received 3 total units PRBCs -started omn iron supplement (3) DVT prophylaxis Comment: - Lovenox per Ortho Status and Disposition: Inpatient. Medically stable for discharge and cleared by Ortho. Unfortunately insurance denied [facility] placement though it was previously approved. Patient lives alone, has stairs in her home, and is unable to use crutches and therefore would be unsafe to be discharged home at this time. Plan to d/c to [facility] tomorrow
[2019-08-06] MEDS: Enoxaparin(*) 30 MG/0.3 ML SYR SUBCUT SCH (10:28)
[2019-08-06] MEDS: Ferrous Sulfate TAB* 325 MG PO SCH (10:28)
[2019-08-06] MEDS: Cholecalciferol TAB* 1000 UNITS PO SCH (10:28)
[2019-08-06 11:23] VITALS: BP 115/56
--- NOTE | 2019-08-06 12:37 | DS ---
ADDENDUM NOW INCLUDED ON THIS REPORT CC: [facility]; Dr. Suyapa Nevarez; Dr. Barraza * DISCHARGE SUMMARY: ADDENDUM: Please note that this is an addendum to discharge summary dictated by Gi Vizcaino on 08/02/19. DATE OF ADMISSION: 07/26/19 DATE OF ANTICIPATED DISCHARGE: 08/06/19 DISPOSITION AT DISCHARGE: [facility]. CONDITION AT DISCHARGE: Stable. DISCHARGE DIAGNOSIS: Right subtrochanteric fracture, status post ORIF of the right hip on 07/27/19. MEDICATIONS AT DISCHARGE: Include: 1. Vitamin C 250 mg daily. 2. Vitamin D 2000 units daily. 3. Tylenol on a p.r.n. basis. 4. Lovenox 30 mg subcutaneously for a total of 30 days after day of surgery which was 07/27/19. 5. Ferrous sulfate 325 mg b.i.d. 6. Oxycodone/acetaminophen 5/325 mg 1 tablet every 4 hours p.r.n. 7. Senna 1 tablet at bedtime p.r.n. 8. Ultram 50 mg every 6 hours p.r.n. LABORATORY DATA DURING REMAINING HOSPITAL STAY: On 08/04/19, white blood cell count 4.7, hemoglobin 7.6, hematocrit 22, platelets of 346. On 08/05/19, creatinine was 0.54. HOSPITALIZATION COURSE: Danni Ontiveros is a 68-year-old female who was held in the hospital over the weekend after her insurance declined to cover for her short-term rehabilitation. At this point, the anticipation is that the patient is going to be discharged to [facility] for short-term rehabilitation today. Please note that this is an addendum to the patient's discharge summary which was originally dictated by Gi Vizcaino on 08/02/19. Over the past 3 days, the patient had been ambulating in the hallway with physical therapy's help. She had no new event and no new problems. She continued to be anemic with hemoglobin that had been stable. She was started on iron supplements. She is being discharged to short-term rehabilitation today. PHYSICAL EXAM AT THE TIME OF DISCHARGE: Blood pressure of 110/56, heart rate of 69 and regular, respiratory rate 18, oxygen saturation 100% on room air, temperature 98.3. General: The patient is a very pleasant 68-year-old female who is in no acute distress. The patient is alert and oriented x3. HEENT: Head atraumatic, normocephalic. Eyes: Pupils equal and reactive to light and accommodation. Oropharynx clear. Mucosa moist. Neck: Supple. No JVD. No bruit bilaterally. Cardiovascular: Regular rate and rhythm. No murmur. Respiratory: Clear to auscultation bilaterally. Abdomen: Soft, nontender. Bowel sounds present in all 4 quadrants. Extremities: There is +1 pitting right ankle edema. Pulses are otherwise +2 bilaterally. There is no clubbing and no cyanosis. On evaluation of the skin, the patient has 2 incisions on the lateral aspect of the right thigh. There are luz maria with no evidence of dehiscence, no evidence of erythema, and no evidence of infection. Neuro Evaluation: Speech is clear. Cranial nerves II through XII grossly intact. Motor strength is 5/5 bilaterally. Please note that this is a short summary of the patient's hospital stay. Please refer to further medical records for details. ADDENDUM: Please note that the patient had a venous Doppler obtained on 08/05/19 to rule out DVT and she was noted to have thrombus in the posterior tibial and peroneal veins without extension to the popliteal vein. That was discussed with orthopedic service. The patient has a [id number] DVT that is basically asymptomatic. She has mild swelling. It is not painful. She is to continue her anticoagulation with Lovenox at 30 mg subcutaneously every 24 hours. She is to follow up with orthopedic surgery department as previously recommended. [id number]/[facility] #: [id number]/[facility]PS #: [id number] [facility]
--- NOTE | 2019-08-06 22:37 | DS ---
CC: Dr. Barraza DISCHARGE SUMMARY: ADDENDUM: Please note that the patient had a venous Doppler obtained on to rule out DVT and she was noted to have thrombus in the posterior tibial and peroneal veins without extension to the popliteal vein. That was discussed with orthopedic service. The patient has a [id number] DVT that is basically asymptomatic. She has mild swelling. It is not painful. She is to continue her anticoagulation with Lovenox at 30 mg subcutaneously every 24 hours. She is to follow up with orthopedic surgery department as previously recommended. [id number]/[facility] #: [id number] MTDD
== END 2019-08-06 14:15 | DRG 481 ==
LOC: ED 12:48 → SSU 16:12
PROVIDERS: ADMIT Physician Assistant Medical; ATTEND Internal Medicine
PROC: 0QS606Z Reposition Right Upper Femur with Intramedullary Internal Fixation Device, Open Approach (ICD-10-PCS; principal; 2019-07-27 17:45)
PROC: 30233N1 Transfusion of Nonautologous Red Blood Cells into Peripheral Vein, Percutaneous Approach (ICD-10-PCS; 2019-07-29)
DX: S72.21XA Displaced subtrochanteric fracture of right femur, initial encounter for closed fracture (principal); D62 Acute posthemorrhagic anemia; I82.451 Acute embolism and thrombosis of right peroneal vein; I82.441 Acute embolism and thrombosis of right tibial vein; J45.909 Unspecified asthma, uncomplicated; D69.6 Thrombocytopenia, unspecified; W01.0XXA Fall on same level from slipping, tripping and stumbling without subsequent striking against object, initial encounter; Y92.009 Unspecified place in unspecified non-institutional (private) residence as the place of occurrence of the external cause
CPT/HCPCS: 36415; 71045; 80048; 80053; 81003; 82565; 85014; 85018; 85025; 85027; 85049; 85060; 85610; 86850; 86900; 86901; 86922; 88304; 93005; 99284; A9270-GY; C1713; C1776; J0690; J1644; J1650; J1885; J2250; J2270; J2704; J3010; P9040